=== PATIENT | female | born 1990 | race Caucasian/White ===

== ENCOUNTER → 2021-12-18 11:44 | Outpatient (CLI) | payer OTHER, SELFPAY ==
[2021-12-18 13:19] LABS: HCG,Quantitative 4291 mIU/ml (0-5.42)
== END ==
PROVIDERS: PCP Family Medicine; Visit Provider Nurse Practitioner Obstetrics & Gynecology
DX: N92.6 Irregular menstruation, unspecified (principal)
CPT/HCPCS: 36415; 84702

== ENCOUNTER → 2022-01-14 16:20 | Outpatient (CLI) | payer OTHER, SELFPAY ==
[2022-01-14 17:57] LABS: Basophils # 0.1 K/mm3 (0-0.2); Basophils % 0.6 % (0.1-2.0); Eosinophils # 0.2 K/mm3 (0.0-0.4); Eosinophils % 1.5 % (0.1-12.0); Hematocrit 39.3 % (37.0-47.0); Hemoglobin 12.8 g/dL (12.2-16.2); Lymphocytes # 2.3 K/mm3 (0.7-4.5); Lymphocytes % 22.1 % (10-50); Mean Corpuscular HGB Conc 32.5 g/dL (31.8-35.4); Mean Corpuscular Hemoglobin 31.7 pg (27.0-31.2); Mean Corpuscular Volume 97.7 fl (81-99); Mean Platelet Volume 8.2 fl (7.4-10.4); Monocytes # 0.5 K/mm3 (0.1-1.0); Monocytes % 4.6 % (1.7-9.3); Neutrophils # 7.3 K/mm3 (1.8-7.8); Neutrophils % 71.3 % (37.0-80.0); Platelet Count 413 K/mm3 (142-424); Red Blood Count 4.02 M/mm3 (4.20-5.40); Red Cell Distribution Width 12.6 % (11.5-17.5); White Blood Count 10.3 K/mm3 (4.8-10.8)
[2022-01-16 08:25] LABS: HIV Screen 4th Generation wRfx Non Reactive (Non Reactive); HSV 1 IgG, Type Spec >62.20 index (0.00-0.90); HSV 2 IgG, Type Spec 9.71 index (0.00-0.90); Rubella Antibodies, IgG 5.51 index (Immune >0.99)
[2022-01-16 13:08] LABS: Hepatitis B Surface Antigen Negative (Negative); Hepatitis C Antibody <0.1 s/co ratio (0.0-0.9); Rapid Plasma Reagin Ab Titer Non Reactive (NonRea<1:1)
== END ==
PROVIDERS: PCP Family Medicine; Visit Provider Nurse Practitioner Obstetrics & Gynecology
DX: Z34.90 Encounter for supervision of normal pregnancy, unspecified, unspecified trimester (principal)
CPT/HCPCS: 85025; 86592; 86695; 86703; 86762; 86790; 86850; 87340; 87380; G0432

== ENCOUNTER → 2022-01-17 14:46 | Outpatient (CLI) | payer OTHER, SELFPAY ==
--- NOTE | 2022-01-17 14:46 | US_ITS ---
FINAL REPORT CLINICAL HISTORY: US OB Before 14 wks for Dates/Confirmation FINDINGS: Sonographic images of the pelvis were obtained. A single, living intrauterine is noted. A yolk sac is present and measures 0.7 cm. Backus to rump length measures 2.6 cm which corresponds to 9 weeks 3 days gestation. Heartbeat is identified and measures 167 beats per minute. movement is seen. The right ovary is within normal limits. The left ovary is within normal limits. IMPRESSION: Single, living, intrauterine gestation with 9 weeks 5 days gestational age. Reviewed, Interpreted and Dictated by Alexander Barajas MD Transcribed by Betty Barrett Authenticated by Alexander Barajas MD on 01/17/2022 04:48:32 PM [facility]
== END ==
PROVIDERS: PCP Nurse Practitioner Obstetrics & Gynecology; Visit Provider Nurse Practitioner Obstetrics & Gynecology
DX: O26.841 Uterine size-date discrepancy, first trimester (principal); Z3A.09 9 weeks gestation of pregnancy
CPT/HCPCS: 76801

== ENCOUNTER → 2022-02-11 15:04 | Outpatient (CLI) | payer OTHER, SELFPAY | PROVIDERS: PCP Family Medicine; Visit Provider Nurse Practitioner Obstetrics & Gynecology | DX: Z34.90 Encounter for supervision of normal pregnancy, unspecified, unspecified trimester (principal) | CPT/HCPCS: 36415 ==

== ENCOUNTER → 2022-04-01 13:52 | Outpatient (CLI) | payer OTHER, SELFPAY ==
--- NOTE | 2022-04-01 13:52 | US_ITS ---
FINAL REPORT CLINICAL HISTORY: 20 weeks gestation anatomy scan FINDINGS: There is a single live intrauterine gestation. Presentation is breech. The cervix is closed and measures 3 cm. Placenta is posterior lateral wrap, grade 1. movement is noted. Heart rate is measured at 170 beats per minute. Three-vessel cord with satisfactory umbilical cord insertion. Four-chamber heart is noted. brain and ventricles are unremarkable. Chest and diaphragm are unremarkable. ABDOMEN: Both kidneys are unremarkable. Stomach is unremarkable. SPINE: No anomalies identified. AMNIOTIC FLUID: Appropriate amount. MEASUREMENTS: ULTRASOUND AGE: 19 weeks 5 days. GESTATION AGE: 20 weeks 2 days. ESTIMATED WEIGHT: 319 g GROWTH PERCENTILE: 25% BPD: 4.6 cm corresponding with 19 weeks 6 days. OFD: 5.6 cm corresponding with 19 weeks 4 days. HC: 16 cm corresponding with 19 weeks 0 days. AC: 14.9 cm corresponding with 20 weeks 1 days. FL: 13.2 cm corresponding with 19 weeks 6 days. CEREBELLUM: 1.9 cm corresponding with 19 weeks 4 days. HUMERUS: 3 cm corresponding with 19 weeks 6 days. HC/AC: 1.08 CI: 82% FL/BPD: 69% FL/AC: 21% IMPRESSION: Single living IUP with an ultrasound age of 19 weeks 5 days. Reviewed, Interpreted and Dictated by Gael Covarrubias III, MD Transcribed by Betty Barrett Authenticated and [facility]
== END ==
PROVIDERS: PCP Family Medicine; Visit Provider Nurse Practitioner Obstetrics & Gynecology
DX: Z34.90 Encounter for supervision of normal pregnancy, unspecified, unspecified trimester (principal); Z3A.20 20 weeks gestation of pregnancy
CPT/HCPCS: 76811

== ENCOUNTER → 2022-06-05 08:12 | Outpatient (CLI) | payer OTHER, SELFPAY ==
[2022-06-05 09:03] LABS: Glucose,Fasting 91 mg/dl (74-100)
[2022-06-05 10:30] LABS: Glucose 1 Hour 111 mg/dL (74-100)
== END ==
PROVIDERS: PCP Family Medicine; Visit Provider Nurse Practitioner Obstetrics & Gynecology
DX: Z34.90 Encounter for supervision of normal pregnancy, unspecified, unspecified trimester (principal)
CPT/HCPCS: 36415; 82951

== ENCOUNTER → 2022-07-28 15:15 | Outpatient (CLI) | payer OTHER, SELFPAY | PROVIDERS: Visit Provider Nurse Practitioner Obstetrics & Gynecology | DX: Z34.90 Encounter for supervision of normal pregnancy, unspecified, unspecified trimester (principal) | CPT/HCPCS: 86403 ==

== ENCOUNTER 2022-08-02 23:42 | Outpatient (CLI) | payer OTHER, SELFPAY ==
[2022-08-02 23:50] VITALS: BMI 27.2
[2022-08-03 00:05] VITALS: BP 118/80; PULSE 98; RESP 18; TEMP 36.8; O2SAT 99; BMI 27.2
[2022-08-03 00:15] LABS: Microscopic, Urine URINE MICROSCOPIC (MICROSCOPIC)
[2022-08-03 00:17] LABS: Appearance,Urine CLEAR (Clear); Bilirubin,Urine Negative (Negative); Blood, Urine Negative (Negative); Color,Urine YELLOW (Yellow); Glucose,Urine (UA) Negative (Negative); Ketones,Urine Negative (Negative); Leukocyte Esterase,Urine TRACE (Negative); Nitrate,Urine Negative (Negative); Protein,Urine Negative (Negative); Urobilinogen,Urine 0.2 EU/dl (0.2)
[2022-08-03 00:46] LABS: Amphetamine/Metha Screen,Urine Negative ng/ml (<1000)
[2022-08-03 00:47] LABS: Barbiturates Screen,Urine Negative ng/ml (<200); Benzodiazepines Screen,Urine Negative ng/ml (<200)
[2022-08-03 00:48] LABS: Cannabinoid Screen,Urine Negative ng/ml (<50)
[2022-08-03 00:49] LABS: Cocaine Screen,Urine Negative ng/ml (<300); Methadone Screen,Urine Negative ng/ml (<300)
[2022-08-03 00:50] LABS: Opiate Screen,Urine Negative ng/ml (<300); Phencyclidine Screen,Urine Negative ng/ml (<25)
== END 2022-08-03 02:02 | disposition home or self-care (01) ==
LOC: OBOUT 23:45 → OB 23:46
PROVIDERS: PCP Family Medicine; Referring Provider Nurse Practitioner Obstetrics & Gynecology; Visit Provider Obstetrics & Gynecology
DX: O60.03 Preterm labor without delivery, third trimester (principal); Z3A.38 38 weeks gestation of pregnancy
CPT/HCPCS: 59025; 80305; 81001; 87086; 96365; G0463

== ENCOUNTER 2022-08-11 05:26 | Inpatient (IN) | payer OTHER, SELFPAY ==
[2022-08-11 05:28] VITALS: BP 124/85; PULSE 87; RESP 17; TEMP 37; O2SAT 98; BMI 27.1
[2022-08-11 06:06] LABS: Coronavirus 19, PCR Not Detected (NotDetected); Influenza A, PCR Not Detected (NotDetected); Influenza B, PCR Not Detected (NotDetected)
[2022-08-11 06:13] LABS: Basophils # 0.1 K/mm3 (0-0.2); Basophils % 0.8 % (0.1-2.0); Eosinophils # 0.1 K/mm3 (0.0-0.4); Eosinophils % 1.3 % (0.1-12.0); Hematocrit 35.2 % (37.0-47.0); Hemoglobin 11.9 g/dL (12.2-16.2); Lymphocytes # 2.4 K/mm3 (0.7-4.5); Lymphocytes % 24.8 % (10-50); Mean Corpuscular HGB Conc 33.9 g/dL (31.8-35.4); Mean Corpuscular Hemoglobin 30.8 pg (27.0-31.2); Mean Corpuscular Volume 90.8 fl (81-99); Monocytes # 0.5 K/mm3 (0.1-1.0); Monocytes % 5.1 % (1.7-9.3); Neutrophils # 6.6 K/mm3 (1.8-7.8); Platelet Count 390 K/mm3 (142-424); Red Blood Count 3.87 M/mm3 (4.20-5.40); Red Cell Distribution Width 12.8 % (11.5-17.5); White Blood Count 9.8 K/mm3 (4.8-10.8)
[2022-08-11 07:08] LABS: Microscopic, Urine URINE MICROSCOPIC (MICROSCOPIC)
[2022-08-11 07:11] LABS: Appearance,Urine CLEAR (Clear); Bilirubin,Urine Negative (Negative); Blood, Urine Negative (Negative); Color,Urine YELLOW (Yellow); Glucose,Urine (UA) Negative (Negative); Ketones,Urine Negative (Negative); Leukocyte Esterase,Urine 1+ (Negative); Nitrate,Urine Negative (Negative); PH,Urine 6.5 (5.0-8.5); Protein,Urine Negative (Negative); Urobilinogen,Urine 0.2 EU/dl (0.2)
[2022-08-11 07:21] LABS: Amphetamine/Metha Screen,Urine Negative ng/ml (<1000); Barbiturates Screen,Urine Negative ng/ml (<200)
[2022-08-11 07:22] LABS: Benzodiazepines Screen,Urine Negative ng/ml (<200)
[2022-08-11 07:23] LABS: Cannabinoid Screen,Urine Negative ng/ml (<50); Cocaine Screen,Urine Negative ng/ml (<300)
[2022-08-11 07:24] LABS: Methadone Screen,Urine Negative ng/ml (<300)
[2022-08-11 07:25] LABS: Bacteria,Urine Trace /lpf; Phencyclidine Screen,Urine Negative ng/ml (<25)
[2022-08-11 07:26] LABS: Opiate Screen,Urine Negative ng/ml (<300)
--- NOTE | 2022-08-11 07:40 | P.CONPHA_ITS ---
Pharmacy Intervention Comments: MEDICATION RECONCILIATION COMPLETED ON PATIENT USING EXTERNAL FILL HISTORY FROM PHARMACY AND LIST FROM SENIOR ABAP DEVELOPER OFFICE. -SONNY SALAZARD
--- NOTE | 2022-08-11 07:40 | HMH.PHAINT1 ---
Pharmacy Intervention Comments: MEDICATION RECONCILIATION COMPLETED ON PATIENT USING EXTERNAL FILL HISTORY FROM PHARMACY AND LIST FROM PALLIATIVE NURSE OFFICE. -SONNY SALAZARD
--- NOTE | 2022-08-11 09:29 | EXP.LABOR.NO ---
Labor Note Subjective: Date: 08/11/22 Time: 08:00 regular contraction Objective: NST:: Reactive Contractions:: every 2-3 minutes Cervical Dilation:: 2 Effacement:: 75% Station: -2 Membranes: artificially ruptured Comment:: I ruptured membranes and there was clear fluid. Fetus: Monitoring?: Yes monitoring type:: External Assessment: Labor progressing?: Yes Cephalopelvic disproportion?: No All Active Problems (Updated 08/11/22 @ 06:56 by Loretta Romo RN) (Acute) Plan: Anesthesia for epidural?: Yes Continue to labor down?: Yes Plan for ?: No Continue to monitor?: Yes Start pushing?: No
--- NOTE | 2022-08-11 09:31 | EXP.HP ---
History of Present Illness *Admission Date: 08/11/22 *Reason for visit:: Term *History of present illness: She is a 32-year-old 4 para 1 who is 39 weeks gestational age. [place] town and as result of that we have elected to induce her labor at term. [facility] Medical History No significant past medical history No significant past medical history Family History Family history of kidney stone Social History Smoking Status: Former smoker alcohol intake: never substance use type: denies use current occupational status: employed Travel in the last 8 weeks: None Review of Systems Review of Systems Review of systems:: pertinent systems reviewed and negative unless documented below Meds Home Medications and Allergies Home Medications Medication Instructions Recorded Confirmed Type prenat.vits,henrry,[id number]-vxmkn 1 tab PO DAILY Supplement 03/11/22 08/11/22 History famotidine 20 mg tablet (Pepcid) 20 mg PO DAILY GERD 08/11/22 08/11/22 History ferrous sulfate 325 mg (65 mg 325 mg PO DAILY Supplement 08/11/22 08/11/22 History iron) tablet valacyclovir 500 mg tablet 500 mg PO DAILY Infection 08/11/22 08/11/22 History New Prescriptions to Start Prescriptions: Allergies Allergy/AdvReac Type Severity Reaction Status Date / Time No Known Allergies Allergy Verified 08/04/22 14:11 Exam Data for Last 24 hours Vital signs and Labs for Last 24 Hours: Temp Pulse Resp BP Pulse Ox 98.6 F 87 17 124/85 98 08/11/22 05:28 08/11/22 05:28 08/11/22 05:28 08/11/22 05:28 08/11/22 05:28 Laboratory Results - last 24 hr 08/11/22 05:55: WBC 9.8, RBC 3.87 L, Hgb 11.9 L, Hct 35.2 L, MCV 90.8, MCH 30.8, MCHC 33.9, RDW 12.8, Plt Count 390, MPV 8.0, Neut % (Auto) 68.0, Lymph % (Auto) 24.8, Dent % (Auto) 5.1, Eos % (Auto) 1.3, Baso % (Auto) 0.8, Neut # (Auto) 6.6, Lymph # (Auto) 2.4, Dent # (Auto) 0.5, Eos # (Auto) 0.1, Baso # (Auto) 0.1 08/11/22 05:55: Blood Type O Positive, Antibody Screen Negative 08/11/22 05:55: SARS-CoV-2 (PCR) Not detected, Influenza A Untype (PCR) Not detected, Influenza Type B (PCR) Not detected 08/11/22 06:35: Urine Color Yellow, Urine Appearance Clear, Urine pH 6.5, Ur Specific [place] 1.010, Urine Protein Negative, Urine Glucose (UA) Negative, Urine Ketones Negative, Urine Blood Negative, Urine Nitrate Negative, Urine Bilirubin Negative, Urine Urobilinogen 0.2, Ur Leukocyte Esterase 1+ A, Urine RBC None, Urine WBC 10-20, Ur Squamous Epith Cells 5-10, Urine Bacteria Trace 08/11/22 06:35: Urine Opiates Screen Negative, Urine Methadone Screen Negative, Ur Barbituates Screen Negative, Ur Phencyclidine Scrn Negative, Ur Amphetamines Screen Negative, U Benzodiazepines Scrn Negative, Urine Cocaine Screen Negative, U Marijuana (THC) Screen Negative I & O for Last 24 hours: Intake & Output 08/08/22 08/09/22 08/10/22 08/11/22 11:59 11:59 11:59 11:59 Weight 148 lb Constitutional Constitutional: no acute distress *Routine HEENT Exam Head: Present normocephalic Eye: Present EOMI and PERRL ENT: Present mucous membranes moist *Routine Neck Exam Neck: Present supple and full ROM *Routine Respiratory Exam Respiratory: Absent accessory muscle use (good air entry bilaterally), wheezes or crackles *Routine Cardiovascular Exam Cardiovascular: Present RRR; Absent murmur *Routine Abdominal Exam Abdominal: Present soft and normoactive bowel sounds; Absent tenderness, rebound, guarding or mass *Routine Rectal Exam Rectal:: deferred *Routine Genitalia Exam Genitalia:: normal female Comment:: Her cervix is 2 cm dilated 75% and -2. *Routine Extremities Exam Extremities: Present full ROM; Absent cyanosis, edema or calf tenderness *Routine Skin Exam Skin: Present intact (good color) *Routine Neurological Exam
--- NOTE | 2022-08-11 10:59 | EXP.OP.NOTE ---
Date of procedure: 08/11/22 Pre-op Diagnosis:: Prolapsed hand, term Post-op Diagnosis:: Prolapsed hand, term Procedure performed:: Primary lower segment transverse section Surgeon:: Maxwell Lin MD Wind Energy Mechanic(s):: Dr. Escalante MOHS SURGEON:: Thelma Molina and Other (Brandon Mckenzie) Anesthesia: spinal Estimated blood loss (mL): 600 Clinical Note:: She is a 32-year-old 4 para 1 aborta 1 who was 39 weeks gestational age. She came in for induction of labor at term. She was started on IV oxytocin had her membranes ruptured. She progressed to 6 cm dilated and on examination it was found that the hand had completely prolapsed through the cervix. As result of that she was offered primary lower segment transverse section. I discussed the risks of surgery that includes bleeding, infection, injuries to the bowel and bladder. I discussed the rare risk of DVT. All questions were answered and consents were signed prior to surgery. We discussed the risks of surgery with her . We also discussed the use of a T AP block. Operative findings:: She delivered a liveborn female child at 10:29 AM on the morning of August 11, 2022. The baby had Apgars of 9 at 1 minute and 9 at 5 minutes. There was a loose nuchal cord. Operative note:: She was taken to the operating room where spinal anesthesia was found be adequate. She was prepped and draped in normal sterile fashion in the supine position with a leftward tilt. A Correa catheter was in the bladder. A Pfannenstiel skin incision was made with knife then carried through to the underlying layer of fascia with cautery. The fascia was opened in the midline with cautery and extended laterally using Botello scissors. Lillian clamps were applied to the superior aspect of the fascial incision which was tented up and the underlying rectus muscles dissected off using cautery. The Lillian clamps were then applied to the inferior aspect of the fascial incision which in a similar fashion was tented up and the underlying rectus muscles dissected off using cautery. The rectus muscles were then in the midline, the peritoneum identified, and entered sharply bluntly.. This incision was then extended superiorly and inferiorly with cautery. We had good visualization of the bladder inferiorly. We then inserted an Javier retractor. Transverse incision was made through the uterine muscle above the bladder flap to the amnion. This incision was then extended superiorly and inferiorly using fingers traction. The amnion was entered sharply with knife. There was clear amniotic fluid. The 's head was then delivered atraumatically. A loose nuchal cord was then reduced. This was followed by the anterior shoulder and the rest of the 's body atraumatically. The oropharynx and nasopharynx were bulb suctioned. The infant was vigorous so we allowed the cord to continue to pulsate for approximately 1 minute. The was then handed off to Dr. Ledezma who assigned Apgars of 9 at 1 minute and 9 at 5 minutes. We then obtained cord blood. Using gentle traction on the cord and fundal massage I was able to easily deliver the placenta intact. It had a normal three-vessel cord. The uterus was then cleared of clots and debris . The uterine incision was then closed using running 0 Vicryl suture in a locked fashion. A second layer of the same suture was used to imbricate the first layer. The bladder peritoneum was then closed using running 2-0 Vicryl suture in a locked fashion. Prior to closure of the bladder peritoneum I inserted a large piece of Gelfoam. The gutters and cul-de-sac were then cleared of clots and debris . Once again hemostasis was assured. The fascia was closed using running #1 Vicryl suture. The subcutaneous tissues were then irrigated with warm water followed by closure Hannah's fascia using running 2-0 Monocryl suture. The skin was closed with running subcuticular 2-0 Monocryl strata fix
[2022-08-11 11:15] VITALS: BP 145/72; PULSE 82; RESP 14; TEMP 36.6; O2SAT 100
--- NOTE | 2022-08-11 11:18 | P.PN_ITS ---
[facility] Medical History No significant past medical history No significant past medical history Family History Family history of kidney stone Social History Smoking Status: Former smoker alcohol intake: never substance use type: denies use current occupational status: employed Travel in the last 8 weeks: None [facility] Anesthesia Checklist Patient Identification Patient Identification: Arm Band and Verbal (Name & ) Structural Data Admitted From: Inpatient Planned Operative Procedure/s: c section Consent for Planned Operative Procedure(s) Verified: Yes Verified Documents: Surgical Consent NPO Status Verified Time NPO: 00:00 Airway Assessment C-Spine Mobility Assessed: Yes TMJ Mobility Assessed: Yes Dentition: Good Dentition Neurological Assessment Level of Consciousness: Awake, Alert and Appropriate Anesthesia Plan Anesthesia Risk discussed: Yes ASA Class: II Anesthesia Type: Spinal
--- NOTE | 2022-08-11 11:19 | EXP.ANES.I ---
[facility] Anesthesia Record Part I Anesthesia Record I Intake, IV Amount: 500 Estimated blood loss (mL): 600 Urine output (mL): 0 Blood Pressure: 125/72 SaO2: 100 Pulse Rate: 82 Respiratory Rate: 14 Temperature: 97.9 F Patient is:: Awake Stable to PACU at:: 11:15
[2022-08-11 11:20] VITALS: BP 125/72; PULSE 82; RESP 14; TEMP 36.6; O2SAT 100
[2022-08-11 11:25] VITALS: BP 122/81; PULSE 83; RESP 14; O2SAT 100
[2022-08-11 11:35] VITALS: BP 126/87; PULSE 81; RESP 14; O2SAT 100
[2022-08-11 11:45] VITALS: BP 129/84; PULSE 80; RESP 14; TEMP 36.7; O2SAT 100
--- NOTE | 2022-08-11 11:49 | SUR.PHASEI ---
1144- detailed report called to queenie parkinson on OB floor 1146- pt left in stable condition with queenie parkinson in pt room. Pt vitals stable, all dressings CDI.
--- NOTE | 2022-08-11 12:24 | SUR.OPER ---
LATE ENTRY 1029 Viable infant girl born 1055 timeout performed for Tap block 1056 Tap blocked started 1108 Tap block finished
[2022-08-11 15:14] LABS: Microscopic,Cath URINE MICROSCOPIC (MICROSCOPIC)
[2022-08-11 15:20] LABS: Appearance,Urine/Cath CLEAR (Clear); Bilirubin,Cath Negative (Negative); Blood, Urine/Cath TRACE-I (Negative); Color,Urine/Cath YELLOW (Yellow); Glucose,Urine/Cath (UA) Negative (Negative); Ketones,Urine/Cath Negative (Negative); Leukocyte Esterase,Cath Negative (Negative); Nitrate,Cath Negative (Negative); Protein,Urine/Cath Negative (Negative); Specific Gravity, Urine/Cath 1.015 (1.005-1.030); Urobilinogen,Cath 0.2 EU/dl (0.2)
[2022-08-11 15:43] LABS: RBC,Urine/Cath Occasional # /hpf (0-3); WBC,Urine/Cath Occasional #/hpf (0-3)
[2022-08-11 15:44] LABS: Bacteria,Urine/Cath TRACE /lpf
[2022-08-12 07:15] LABS: Hematocrit 29.6 % (37.0-47.0); Hemoglobin 9.8 g/dL (12.2-16.2)
[2022-08-12 08:22] VITALS: BP 124/80; PULSE 89; RESP 18; TEMP 36.8; O2SAT 99
--- NOTE | 2022-08-12 08:26 | P.PN_ITS ---
Subjective *Date: 08/12/22 *Time: 08:26 Interval history: She is doing very well. She is 1 day post section for a hand presentation. Her pain is now well controlled. She did not seem to have much relief with the T AP block. She is eating and drinking and ambulating. She is breast-feeding. Medical Exam Vital signs and Labs for Last 24 Hours: Temp Pulse Resp BP Pulse Ox 98.0 F 80 14 129/84 100 08/11/22 11:45 08/11/22 11:45 08/11/22 11:45 08/11/22 11:45 08/11/22 11:45 Laboratory Results - last 24 hr 08/11/22 10:16: Urine Color Yellow, Urine Appearance Clear, Urine pH 8.0, Ur Specific [place] 1.015, Urine Protein Negative, Urine Glucose (UA) Negative, Urine Ketones Negative, Urine Blood Trace-i, Urine Nitrate Negative, Urine Bilirubin Negative, Urine Urobilinogen 0.2, Ur Leukocyte Esterase Negative, Urine RBC Occasional, Urine WBC Occasional, Ur Squamous Epith Cells None, Urine Bacteria Trace 08/12/22 06:40: Hgb 9.8 L, Hct 29.6 L I & O for Labs for Last 24 Hours: Intake & Output 08/09/22 08/10/22 08/11/22 08/12/22 11:59 11:59 11:59 11:59 Intake Total 500 / 500 Balance 500 / 500 Weight 148 lb Microbiology Reports for the Last 24 Hours: Microbiology 08/11/22 06:35 Urine,Clean Catch Urine Culture - Preliminary NO GROWTH AFTER 24 HOURS Head: Present atraumatic and normocephalic ENT: Present normal exam Neck: Present normal inspection Respiratory: Present normal respiratory effort GI: Present soft and tenderness; Absent guarding or rigidity Comments:: Her incision is clean and dry Neuro: Present alert, awake and oriented x 3 Assessment and Plan *Assessment and plan (1) delivery delivered: Status: Acute Category: Medical Code(s): O82 - Encounter for delivery without indication (2) Hand presentation: Status: Acute Category: Medical Code(s): O32.2XX0 - Maternal care for transverse and oblique lie, not applicable or unspecified Plan She is doing well. Her pain is improved. We will observe her for today and see how she does. If she is doing well she may be discharged tomorrow.
[2022-08-12 10:35] VITALS: BP 129/84; PULSE 80; TEMP 36.6
--- NOTE | 2022-08-12 10:35 | P.PNANES_ITS ---
[facility] Anesthesia Record Part II Anesthesia Record Part II Discharge Time: 11:45 Destination: Surgical Day Care (OP Surgery) PACU nurse assessment reviewed?: Yes Patient Condition:: Good Anesthesia Complications:: None Swallowing reflex intact?: Yes Cyanosis?: No Blood Pressure: 129/84 Pulse Rate: 80 Temperature: 98 F Mental Status: Alert & Oriented Pain level:: 0 Nausea and/or vomitting:: None Intake, IV Amount: 0
[2022-08-12 16:22] VITALS: BP 116/65; PULSE 82; RESP 18; TEMP 37; O2SAT 99
[2022-08-12 20:30] VITALS: RESP 18
[2022-08-13 01:26] VITALS: RESP 18
[2022-08-13 05:39] VITALS: RESP 18
--- NOTE | 2022-08-13 09:34 | EXP.DC.SUM ---
General Admission date:: 08/11/22 Discharge date: 08/13/22 HPI HPI HPI: She is a 32-year-old 4 para 1 who is 39 weeks gestational age. [place] town and as result of that we have elected to induce her labor at term. Hospital Course Hospital Course Hospital Course: She was started on oxytocin and progressed to 6 cm. On examination was found that she had a hand presentation with the baby's hand through the cervix. As result of that she was offered section. She delivered a liveborn female child at 10:29 AM on the morning of August 11, 2022. The baby weighed 5 pounds 14 ounces and was 17-1/2 inches long. She had Apgars of 9 at 1 minute and 9 at 5 minutes. She has done well and has remained afebrile for her hospitalization. She is eating and drinking and ambulating. She is breast-feeding. Her lochia is normal. She has O Rh+ blood, she is rubella immune and was group B streptococcus negative. She is discharged home to follow-up with me in approximately 2 weeks time. She will continue with her vitamins and iron. She was given a prescription for Percocet 5/325 number 20 tablets. She was given instructions with respect to limiting her activity, driving and sexual activity. She was given instructions with respect to wound care. Her condition on discharge is stable and improved. Exam Data for Last 24 hours Vital signs and Labs for Last 24 Hours: Temp Pulse Resp BP Pulse Ox 98.6 F 82 18 116/65 99 08/12/22 16:22 08/12/22 16:22 08/13/22 05:39 08/12/22 16:22 08/12/22 16:22 I & O for Last 24 hours: Intake & Output 08/10/22 08/11/22 08/12/22 08/13/22 11:59 11:59 11:59 11:59 Intake Total 500 / 500 0 / 0 Balance 500 / 500 0 / 0 Weight 148 lb Microbiology Reports for the Last 24 Hours: Microbiology 08/11/22 06:35 Urine,Clean Catch Urine Culture - Final NO GROWTH AFTER 48 HOURS DS: Diagnosis Discharge Diagnosis (1) delivery delivered: Status: Acute (2) Hand presentation: Status: Acute Meds Home Medications and Allergies Home Medications Medication Instructions Recorded Confirmed Type philomena.vits,henrry,afx-rsof-akwkk 1 tab PO DAILY Supplement 03/11/22 08/11/22 History famotidine 20 mg tablet (Pepcid) 20 mg PO DAILY GERD 08/11/22 08/11/22 History ferrous sulfate 325 mg (65 mg 325 mg PO DAILY Supplement 08/11/22 08/11/22 History iron) tablet valacyclovir 500 mg tablet 500 mg PO DAILY Infection 08/11/22 08/11/22 History oxycodone-acetaminophen 5 mg-325 1 - 2 tab PO Q6 PRN severe pain. 08/13/22 Rx mg tablet (Percocet) #20 tabs New Prescriptions to Start Prescriptions: oxycodone-acetaminophen [Percocet] Maxwell Lin Allergies Allergy/AdvReac Type Severity Reaction Status Date / Time No Known Allergies Allergy Verified 08/04/22 14:11 Discharge Plan Disposition Patient Disposition: Home, Self-Care Discharge Order Discharge Orders: Discharge Order (Routine); Ordered 08/13/22 Ordered By: Maxwell Lin Follow up Plan Follow up with: Maxwell Lin MD [Staff Physician] - 08/25/22 9:30 am Prescriptions/Medication Reconciliation: New oxycodone-acetaminophen [Percocet] 5-325 mg Tablet 1 - 2 tab PO Q6 PRN (Reason: severe pain.) Qty: 20 0RF Continued prenat.vits,henrry,xlf-[id number]-[id number] Tablet 1 tab PO DAILY famotidine [Pepcid] 20 mg tablet 20 mg PO DAILY ferrous sulfate 325 mg (65 mg iron) tablet 325 mg PO DAILY valacyclovir 500 mg tablet 500 mg PO DAILY Label Comments: TAKE 1 TABLET BY MOUTH ONCE DAILY Problem Reconciliation Problems Reviewed?: Yes Patient Discharge Instructions ACTIVITY: No heavy lifting DIET: continue same diet Providers Primary Care Provider: Ninfa Ventura Admit Provider: Maxwell Lin Attending Provider: Maxwell Lin
== END 2022-08-13 11:00 | disposition home or self-care (01) | DRG 788 ==
PROVIDERS: Admitting Provider Nurse Practitioner Obstetrics & Gynecology; PCP Family Medicine; Visit Provider Nurse Practitioner Obstetrics & Gynecology
PROC: 10D00Z1 Extraction of Products of Conception, Low, Open Approach (ICD-10-PCS; CPT 59514; principal; 2022-08-11 10:00)
DX: Z3A.39 39 weeks gestation of pregnancy; Z37.0 Single live birth; O69.81X0 Labor and delivery complicated by cord around neck, without compression, not applicable or unspecified; O32.2XX0 Maternal care for transverse and oblique lie, not applicable or unspecified
CPT/HCPCS: 59514; 36415; 59025; 80305; 81001; 85014; 85018; 85025; 86850; 87086; 90715; 94761; C9803; G0283; J2405; J2505; U0003; U0005

== ENCOUNTER 2023-12-25 13:21 | Outpatient (CLI) | payer OTHER, SELFPAY ==
[2023-12-25 14:59] LABS: HCG,Quantitative 24 mIU/ml (0-5.42)
[2023-12-26 05:53] LABS: Progesterone 1.3 ng/mL (.)
== END 2023-12-25 23:59 ==
LOC: LAB 13:23
PROVIDERS: PCP Family Medicine; Visit Provider Nurse Practitioner Obstetrics & Gynecology
DX: Z32.01 Encounter for pregnancy test, result positive (principal)
CPT/HCPCS: 36415; 84144; 84702

== ENCOUNTER 2024-01-28 12:51 | Outpatient (CLI) | payer OTHER, SELFPAY ==
[2024-01-28 14:32] LABS: HCG,Quantitative 60 mIU/ml (0-5.42)
== END 2024-01-28 23:59 ==
LOC: LAB 12:52
PROVIDERS: PCP Family Medicine; Visit Provider Nurse Practitioner Obstetrics & Gynecology
DX: Z32.00 Encounter for pregnancy test, result unknown (principal)
CPT/HCPCS: 36415; 84702

== ENCOUNTER 2024-02-02 09:45 | Outpatient (CLI) | payer OTHER, SELFPAY ==
[2024-02-02 11:47] LABS: HCG,Quantitative 4 mIU/ml (0-5.42)
[2024-02-03 08:30] LABS: Progesterone 0.6 ng/mL (.)
== END 2024-02-02 23:59 | disposition home or self-care (01) ==
LOC: LAB 09:45
PROVIDERS: PCP Family Medicine; Visit Provider Nurse Practitioner Obstetrics & Gynecology
DX: O26.891 Other specified pregnancy related conditions, first trimester (principal); O03.9 Complete or unspecified spontaneous abortion without complication
CPT/HCPCS: 36415; 84144; 84702

== ENCOUNTER 2024-03-17 08:58 | Outpatient (CLI) | payer OTHER, SELFPAY ==
[2024-03-17 11:23] LABS: HCG,Quantitative 35170 mIU/ml (0-5.42)
== END 2024-03-17 23:59 | disposition home or self-care (01) ==
LOC: LAB 08:59
PROVIDERS: PCP Family Medicine; Visit Provider Nurse Practitioner Obstetrics & Gynecology
DX: O26.891 Other specified pregnancy related conditions, first trimester (principal); Z3A.14 14 weeks gestation of pregnancy
CPT/HCPCS: 36415; 84144; 84702

== ENCOUNTER 2024-03-18 10:09 | Outpatient (CLI) | payer OTHER, SELFPAY ==
--- NOTE | 2024-03-18 10:12 | US_ITS ---
PROCEDURE: US OB <= 14 WEEKS FETUS CLINICAL INDICATION: Check Viability/dates of COMPARISON: No exams were available for comparison FINDINGS: Transvaginal sonographic images of the pelvis were obtained. From her last menstrual period she is 6weeks 6days. An intrauterine gestational sac is present with a pole with a crown-rump length of 0.31cm This correlates to a gestational age of 6weeks 0 days. heart tones are present with an FHR of 116bpm. Yolk sac is noted. The yolk sac measures 4.2mm. The right ovary is seen and appears normal. There is a corpus luteum in the right ovary measuring 2.6 cm. The left ovary is seen and appears normal. There is no fluid in the cul-de-sac. IMPRESSION: 1. Viable intrauterine within the uterine cavity. 2. Fetus currently measures 6 weeks 0 days. We will revise her due date to reflect this and the new due date will be 11/11/2024. 3. Both ovaries are seen and appear normal. There appears to be a corpus luteum on the right ovary. 4. No fluid in the cul-de-sac. Dictated by: Maxwell Lin MD 03/19/2024 08:31 Maxwell Lin MD in OV 03/19/2024 08:31
== END 2024-03-18 23:59 | disposition home or self-care (01) ==
LOC: RAD 10:10
PROVIDERS: PCP Family Medicine; Visit Provider Nurse Practitioner Obstetrics & Gynecology
DX: O36.80X0 Pregnancy with inconclusive fetal viability, not applicable or unspecified (principal)
CPT/HCPCS: 76801

== ENCOUNTER 2024-04-27 16:29 | Outpatient (CLI) | payer OTHER, SELFPAY | END 2024-04-27 23:59 | disposition home or self-care (01) | LOC: LAB.DROPOF 16:29 | PROVIDERS: PCP Nurse Practitioner Obstetrics & Gynecology; Visit Provider Nurse Practitioner Obstetrics & Gynecology | DX: Z34.90 Encounter for supervision of normal pregnancy, unspecified, unspecified trimester (principal) | CPT/HCPCS: 87086 ==

== ENCOUNTER 2024-06-24 09:00 | Outpatient (CLI) | payer OTHER, SELFPAY ==
--- NOTE | 2024-06-24 09:00 | US_ITS ---
PROCEDURE: US OB /MATERNAL DETAIL CLINICAL INDICATION: 20 wk+ Anatomy Scan COMPARISON: No exams were available for comparison FINDINGS: Transabdominal sonographic images of the pelvis were obtained. From her established due date she is 20 weeks 0 days. Single viable intrauterine gestation. Breech position. Placenta: Posteriorplacenta grade 1. There is an average amount of fluid. The cervix appears satisfactory. Closed and measuring 3.3 cm in length. Complete survey performed and was unremarkable on the submitted images as in PACS. No discrete anomalies identified on survey imaging by technologist. Active fetus. Three-vessel cord with satisfactory umbilical cord insertion. 4- chamber heart noted. Situs, aortic arch, LVOT, RVOT, three-vessel view appear normal. Survey of brain & ventricles Unremarkable. Cerebellum, thalamus, choroid plexus, cisterna magna appear normal. Face and neck survey unremarkable. Profile, nasion, lips and nose appeared normal. Diaphragm and chest views unremarkable. Abdomen: Both kidneys noted and unremarkable. Stomach and bladder noted and satisfactory. Spine: Survey of the spine satisfactory with no anomalies identified nor imaged. Cervical, thoracic, lower spine appear normal. Both arms and legs noted. Amniotic Fluid: Adequate. MVP 3.45 cm. Measurements: Average ultrasound age 20weeks 1day. Estimated due date by ultrasound age 0111/10/2024. Estimated weight 337g BPD = 20weeks 1day HC = 19weeks 5days AC = 20weeks 0 days FL = 20weeks 4days Growth Percentile= 56 Heart Rate = 146bpm Cerebellum = 19weeks Humerus = 21weeks HC/AC is 1.16 FL/BPD is 0.72 FL/AC is 0.23 IMPRESSION: 1. Viable fetus in the breech presentation with posterior placenta grade 1. 2. The fluid is within normal limits. MVP 3.45 cm. 3. Anatomical scan appears normal. 4. biometry is consistent with the dates. Dictated by: Maxwell Lin MD 06/24/2024 16:50 Maxwell Lin MD in OV 06/24/2024 16:50
== END 2024-06-24 23:59 | disposition home or self-care (01) ==
LOC: RAD 09:00
PROVIDERS: PCP Nurse Practitioner Obstetrics & Gynecology; Visit Provider Nurse Practitioner Obstetrics & Gynecology
DX: Z36.3 Encounter for antenatal screening for malformations (principal); O82 Encounter for cesarean delivery without indication; Z3A.20 20 weeks gestation of pregnancy
CPT/HCPCS: 76811

== ENCOUNTER 2024-08-16 08:20 | Outpatient (CLI) | payer OTHER, SELFPAY ==
[2024-08-16 08:41] LABS: Basophils # 0.1 K/mm3 (0-0.2); Basophils % 0.6 % (0.1-2.0); Eosinophils # 0.2 K/mm3 (0.0-0.4); Eosinophils % 1.7 % (0.1-12.0); Hematocrit 34.3 % (37.0-47.0); Hemoglobin 11.9 g/dL (12.2-16.2); Lymphocytes # 2.4 K/mm3 (0.7-4.5); Lymphocytes % 23.6 % (10-50); Mean Corpuscular HGB Conc 34.6 g/dL (31.8-35.4); Mean Corpuscular Hemoglobin 31.8 pg (27.0-31.2); Mean Platelet Volume 7.3 fl (7.4-10.4); Monocytes # 0.5 K/mm3 (0.1-1.0); Monocytes % 4.5 % (1.7-9.3); Neutrophils # 7.2 K/mm3 (1.8-7.8); Neutrophils % 69.6 % (37.0-80.0); Platelet Count 378 K/mm3 (142-424); Red Blood Count 3.73 M/mm3 (4.20-5.40); Red Cell Distribution Width 13.3 % (11.5-17.5); White Blood Count 10.4 K/mm3 (4.8-10.8)
[2024-08-16 09:04] LABS: Glucose,Fasting 80 mg/dl (74-100)
[2024-08-16 10:04] LABS: Glucose 1 Hour 118 mg/dL (74-100)
[2024-08-17 13:41] LABS: Rapid Plasma Reagin Ab Titer Non Reactive titer (NonRea<1:1)
== END 2024-08-16 23:59 | disposition home or self-care (01) ==
LOC: LAB 08:21
PROVIDERS: PCP Family Medicine; Visit Provider Nurse Practitioner Obstetrics & Gynecology
DX: Z34.90 Encounter for supervision of normal pregnancy, unspecified, unspecified trimester (principal)
CPT/HCPCS: 36415; 82951; 85025; 86593

== ENCOUNTER 2024-09-05 09:52 | Outpatient (CLI) | payer OTHER, SELFPAY ==
--- NOTE | 2024-09-05 10:06 | US_ITS ---
PROCEDURE: US OB FOLLOW UP CLINICAL INDICATION: Growth COMPARISON: US US OB <= 14 WEEKS FETUS from 03/18/2024 US US OB /MATERNAL DETAIL from 06/24/2024 FINDINGS: Transabdominal sonographic images of the pelvis were obtained. The following parameters are obtained: From her established due date she is 30weeks 3days Viable fetus in the cephalic presentation with a posterior placenta grade 2. The cervix measures 3.1 cm heart rate: 134bpm bpm. Estimated weight 1618 grams, 3 lb 9 oz BPD: 31weeks 2days, 65 percentile HC: 31weeks 3days, 42 percentile AC: 31weeks 0 days, 61 percentile FL: 30weeks 0 days, 22 percentile HC/AC: 1.07 FL/BPD: 0.73 FL/AC: 0.21 Growth percentile: 46 Amniotic fluid index: 12.33cm, MVP 4.26 cm No obvious anomalies evident. profile seen, stomach, bladder, kidneys, nose, lips, three-vessel cord, four chamber heart appear normal. IMPRESSION: 1. Viable fetus in the cephalic presentation with posterior placenta grade 2. 2. The fluid is within normal limits with an amniotic fluid index 12.33 cm, MVP 4.26 cm. 3. There has been good growth with the fetus currently 46th percentile. 4. Limited anatomical scan appears normal. Dictated by: Maxwell Lin MD 09/05/2024 14:03 Maxwell Lin MD in OV 09/05/2024 14:04
--- NOTE | 2024-09-05 10:06 | US_ITS ---
PROCEDURE: US OB TRANSVAGINAL CLINICAL INDICATION: Growth COMPARISON: No exams were available for comparison FINDINGS: Transvaginal sonographic images of the cervix were obtained. The following parameters are obtained: From her established due date she is 30weeks 3days Viable fetus in the cephalic presentation. The cervix measures 1.0 cm There is funneling of the cervix at the internal os. It measures 8 mm in length and 5.0 mm in with. IMPRESSION: 1. The cervix is foreshortened at 30 weeks and 3 days. 2. It measures 1.0 cm in length. There is funneling that measures 5.0 mm in width and 8 mm in length. 3. Fetus is in the cephalic presentation. Dictated by: Maxwell Lin MD 09/05/2024 13:57 Maxwell Lin MD in OV 09/05/2024 13:57
[2024-09-05 10:27] LABS: Basophils # 0.1 K/mm3 (0-0.2); Basophils % 0.6 % (0.1-2.0); Eosinophils # 0.2 K/mm3 (0.0-0.4); Eosinophils % 1.4 % (0.1-12.0); Hematocrit 33.6 % (37.0-47.0); Hemoglobin 11.4 g/dL (12.2-16.2); Lymphocytes # 2.6 K/mm3 (0.7-4.5); Lymphocytes % 21.2 % (10-50); Mean Corpuscular HGB Conc 33.8 g/dL (31.8-35.4); Mean Corpuscular Hemoglobin 31.1 pg (27.0-31.2); Mean Corpuscular Volume 91.9 fl (81-99); Mean Platelet Volume 7.5 fl (7.4-10.4); Monocytes # 0.4 K/mm3 (0.1-1.0); Monocytes % 3.4 % (1.7-9.3); Neutrophils # 9.2 K/mm3 (1.8-7.8); Neutrophils % 73.5 % (37.0-80.0); Platelet Count 339 K/mm3 (142-424); Red Blood Count 3.66 M/mm3 (4.20-5.40); Red Cell Distribution Width 13.3 % (11.5-17.5); White Blood Count 12.5 K/mm3 (4.8-10.8)
[2024-09-05 11:20] LABS: HIV (1&2) Antibody Rapid NONREACTIVE (NONREACTIVE)
[2024-09-05 12:28] VITALS: BMI 23.9
[2024-09-05 12:44] VITALS: BP 134/79; PULSE 98; RESP 16; TEMP 36.7; O2SAT 100; BMI 23.9
[2024-09-05] MEDS: LACTATED RINGERS 1000ML 1,000 ML 999 ML IV (13:45)
[2024-09-05] MEDS: NIFEdipine 10MG CAPSULE 10 MG PO (13:58)
[2024-09-05 14:42] LABS: Microscopic, Urine URINE MICROSCOPIC (MICROSCOPIC)
[2024-09-05 14:54] LABS: Appearance,Urine CLEAR (Clear); Bilirubin,Urine Negative (Negative); Blood, Urine Negative (Negative); Color,Urine YELLOW (Yellow); Glucose,Urine (UA) Negative (Negative); Ketones,Urine TRACE (Negative); Leukocyte Esterase,Urine Negative (Negative); Nitrate,Urine Negative (Negative); Protein,Urine Negative (Negative); Specific Gravity, Urine 1.015 (1.005-1.030); Urobilinogen,Urine 0.2 EU/dl (0.2)
[2024-09-05 15:07] LABS: Amphetamine/Metha Screen,Urine Negative ng/ml (<1000); Barbiturates Screen,Urine Negative ng/ml (<200); Benzodiazepines Screen,Urine Negative ng/ml (<200); Cannabinoid Screen,Urine Negative ng/ml (<50); Cocaine Screen,Urine Negative ng/ml (<300); Methadone Screen,Urine Negative ng/ml (<300); Opiate Screen,Urine Negative ng/ml (<300); Phencyclidine Screen,Urine Negative ng/ml (<25)
[2024-09-05] MEDS: BETAMETHASONE ACET/PHOS 6MG/ML 5ML MDV 12 MG IM (15:18)
[2024-09-05 15:20] LABS: Squamous Epithelial Cell,Urine Occasional #/hpf (0-5)
[2024-09-06 08:51] LABS: HCV Ab Non Reactive (Non Reactive); Hepatitis B Surface Antigen Negative (Negative)
[2024-09-06 11:17] LABS: Rubella Antibodies, IgG 4.16 index (Immune >0.99)
[2024-09-06 13:34] LABS: Rapid Plasma Reagin Ab Titer Non Reactive titer (NonRea<1:1)
== END 2024-09-05 15:38 | disposition home or self-care (01) ==
LOC: RAD 09:53 → OBOUT 12:23 → OB 12:24
PROVIDERS: PCP Family Medicine; Visit Provider Nurse Practitioner Obstetrics & Gynecology
DX: O34.43 Maternal care for other abnormalities of cervix, third trimester (principal); Z3A.30 30 weeks gestation of pregnancy
CPT/HCPCS: 36415; 76816; 76817; 80307; 81001; 85025; 86593; 86762; 86803; 86850; 87340; 87389; G0463; J0702; J7120

== ENCOUNTER 2024-09-06 13:13 | Outpatient (CLI) | payer OTHER, SELFPAY ==
[2024-09-06 13:56] VITALS: BMI 23.9
[2024-09-06] MEDS: BETAMETHASONE ACET/PHOS 6MG/ML 5ML MDV 12 MG IM (14:21)
== END 2024-09-06 14:45 | disposition home or self-care (01) ==
LOC: OBOUT 13:14 → OB 13:15
PROVIDERS: PCP Family Medicine; Visit Provider Nurse Practitioner Obstetrics & Gynecology
DX: O60.03 Preterm labor without delivery, third trimester (principal); Z3A.30 30 weeks gestation of pregnancy
CPT/HCPCS: G0463; J0702

== ENCOUNTER 2024-09-23 10:19 | Outpatient (CLI) | payer OTHER, SELFPAY ==
--- NOTE | 2024-09-23 10:36 | EXP.PN ---
Subjective *Date: 09/23/24 *Time: 10:36 Interval history: Madeleine Brock is a 34 yo (CSx1 & SVDx1) presenting for NST and bedside US for position. She denies having contractions and endorses movement Exam Constitutional Constitutional: no acute distress *Routine HEENT Exam Head: Present normocephalic Eye: Present EOMI and PERRL ENT: Present mucous membranes moist *Routine Neck Exam Neck: Present supple; Absent lymphadenopathy *Routine Respiratory Exam Respiratory: Present CTA bilaterally *Routine Cardiovascular Exam Cardiovascular: Present RRR *Routine Abdominal Exam Abdominal: Present soft and normoactive bowel sounds; Absent tenderness *Routine Extremities Exam Extremities: Absent cyanosis, clubbing or edema *Routine Skin Exam Skin: Present warm; Absent rash *Routine Neurological Exam Neurological: Present alert and oriented X3 Assessment and Plan *Assessment and plan (1) labor in third trimester: Status: Acute Qualifiers: labor delivery status: without delivery Qualified Code(s): O60.03 - labor without delivery, third trimester Category: Medical Code(s): O60.03 - labor without delivery, third trimester Plan bedside US confirmed cephalic presentation. proceed with NST keep follow up in office desires repeat CD with BSG. declines TOLAC if presenting in labor
[2024-09-23 10:43] VITALS: BP 121/66; PULSE 112; RESP 18; TEMP 36.8; O2SAT 98; BMI 24.1
--- NOTE | 2024-10-04 20:46 | PC.NURSE ---
Patient called OB unit reporting her history of silent labor and that the contractions have been occurring as they have been recently. Patient reports feeling random tightening and irritability with the occasional contraction in her abdomen and back as she has reported to the MD. Patient states her main concern tonight is feeling as though movement has been lesser than normal but is still present. Patient states that she does live far away and does not want to drive in to get sent home tonight but also does not want to have a baby tonight. Patient encouraged to come to unit to be evaluated considering her history and concerns of labor, especially if pain worsens, contractions occur more frequently, or movement continues to be decreased. Patient wishes to attempt other interventions prior to coming in and patient educated on lying on side and drinking a sugary drink. Patient states she wants to attempt the sugary drink prior and will call if anything worsens or if she decides to come in.
== END 2024-09-23 12:03 | disposition home or self-care (01) ==
LOC: OBOUT 10:21 → OB 10:23
PROVIDERS: PCP Family Medicine; Visit Provider Nurse Practitioner Obstetrics & Gynecology
DX: O60.03 Preterm labor without delivery, third trimester (principal); Z3A.33 33 weeks gestation of pregnancy
CPT/HCPCS: G0463

== ENCOUNTER 2024-10-04 23:15 | Inpatient (IN) | payer OTHER, SELFPAY ==
[2024-10-04 23:21] VITALS: BP 121/59; PULSE 111; RESP 16; TEMP 36.6; O2SAT 98; BMI 24.5
[2024-10-05] MEDS: LACTATED RINGERS 1000ML 1,000 ML 999 ML IV (01:56)
[2024-10-05 04:21] VITALS: BP 106/64; PULSE 98; RESP 17; TEMP 36.9; O2SAT 97
--- NOTE | 2024-10-05 09:38 | EXP.HPDC ---
General Admission date:: 10/04/24 Discharge date: 10/05/24 *Admission Date: 10/04/24 *Chief complaint: decreased movement, irregular contractions *History of present illness: Mrs Madeleine Brock is a 34 yo at 34w5d who presented to [facility] triage with complaint of decreased movement and irregular contractions. Upon arrival to L&D baby's movement had increased. Normal movement. She also stated that contractions stopped on her 1.[address] to the hospital. However, she admitted she was too tired to drive home. History of . On prior exam, cervix was noted to be 3/100/-1. RN was unable to find cervix on exam. [facility] Disclaimer: The information contained in this section may have been updated after the patient was seen, as this information can be updated by other users. Medical History Advanced maternal age (AMA) in Breech presentation Premature cervical dilation Short cervix affecting Abnormal biopsy result Surgical History Hx of section Family History Other Family history of kidney stone Social History Smoking Status: Never smoker alcohol intake: never substance use type: denies use current occupational status: employed Travel in the last 8 weeks: None Other Medical History Have you received the Flu Vaccine for this season: No Have you received the Pneumonia Vaccine: No Review of Systems Review of Systems Review of systems:: pertinent systems reviewed and negative unless documented below Exam Data for Last 24 hours Vital signs and Labs for Last 24 Hours: Temp Pulse Resp BP Pulse Ox O2 Del Method 98.5 F 98 H 17 106/64 L 97 Room Air 10/05/24 04:21 10/05/24 04:21 10/05/24 04:21 10/05/24 04:21 10/05/24 04:21 10/05/24 04:21 I & O for Last 24 hours: Intake & Output 10/02/24 10/03/24 10/04/24 10/05/24 23:59 23:59 23:59 23:59 Weight 134 lb Constitutional Constitutional: no acute distress and cooperative *Routine HEENT Exam Head: Present normocephalic and atraumatic Eye: Absent conjunctivae pink ENT: Present mucous membranes moist *Routine Neck Exam Neck: Present full ROM *Routine Respiratory Exam Respiratory: Present CTA bilaterally and normal respiratory effort *Routine Cardiovascular Exam Cardiovascular: Present RRR *Routine Abdominal Exam Abdominal: Present soft (Gravid); Absent tenderness *Routine Rectal Exam Rectal:: deferred *Routine Genitalia Exam Genitalia:: normal female *Routine Extremities Exam Extremities: Present full ROM; Absent edema or calf tenderness *Routine Neurological Exam Neurological: Present alert, moving all extremities and normal speech Routine Psychiatric Exam Psychiatric: Present normal affect and cooperative Meds Home Medications and Allergies Home Medications ?Medication ?Instructions ?Recorded ?Confirmed ?Type vits no.126-ferrous fum 1 tab PO DAILY 04/27/24 10/05/24 History 28 mg iron-folic acid 800 mcg tablet (Classic ) famotidine 20 mg tablet (Pepcid) 20 mg PO DAILY #30 tabs 06/20/24 10/05/24 Rx ferrous sulfate 325 mg (65 mg 325 mg PO DAILY #30 tabs 06/20/24 10/05/24 Rx iron) tablet nifedipine 10 mg capsule 10 mg PO TID PRN contractions #60 09/05/24 10/05/24 Rx caps New Prescriptions to Start Prescriptions: Allergies Allergy/AdvReac Type Severity Reaction Status Date / Time No Known Allergies Allergy Verified 10/03/24 08:34 Hospital Course Hospital Course Hospital Course: Mrs Madeleine Brock is a 34 yo at 34w5d who presented to [facility] triage with complaint of decreased movement and irregular contractions. Upon arrival to L&D baby's movement had increased. Normal movement. She also stated that contractions stopped on her 1.[address] to the hospital. However, she admitted she was too tired to drive home. History of . On prior exam, cervix was noted to be 3/100/-1. RN was unable to find cervix on exam. She was kept for observation. NST reactive. [place] demostrated irritability. SVE by OB this morning was 3/90/-1, soft and very posterior. Exam unchanged from prior exam. She was discharged home with labor precautions and instructed to follow-up as scheduled. DS: Diagnosis Discharge Diagnosis (1) Advanced maternal age (AMA) in : Status: Acute (2) Short cervix affecting : Status: Acute Code(s): O26.879 - Cervical shortening, unspecified trimester (3) Premature cervical dilation: Status: Acute Code(s): O34.30 - Maternal care for cervical incompetence, unspecified trimester Qualifiers: Trimester: third trimester Qualified Code(s): O34.33 - Maternal care for cervical incompetence, third trimester (4) Hx of section: Status: Acute Code(s): Z98.891 - History of uterine scar from previous surgery Discharge Plan Disposition Patient Disposition: Home, Self-Care Condition: Good Follow up Plan Prescriptions/Medication Reconciliation: Continued famotidine [Pepcid] 20 mg tablet 20 mg PO DAILY Qty: 30 11RF ferrous sulfate 325 mg (65 mg iron) tablet 325 mg PO DAILY Qty: 30 11RF nifedipine 10 mg capsule 10 mg PO TID PRN (Reason: contractions) Qty: 60 1RF Classic 28 mg iron- 800 mcg tablet 1 tab PO DAILY Problem Reconciliation Problems Reviewed?: Yes Patient Discharge Instructions ACTIVITY: Continue current activity DIET: continue same diet and regular diet Patient Instructions: Antepartum Care Print Language: Lithuanian Providers Primary Care Provider: Ninfa Ventura Admit Provider: Loretta Beltrán Attending Provider: Loretta Beltrán
== END 2024-10-05 09:45 | disposition home or self-care (01) | DRG 832 ==
PROVIDERS: Admitting Provider Obstetrics & Gynecology; PCP Family Medicine; Visit Provider Obstetrics & Gynecology
DX: O36.8130 Decreased fetal movements, third trimester, not applicable or unspecified (principal); O26.873 Cervical shortening, third trimester; Z3A.34 34 weeks gestation of pregnancy; O34.30 Maternal care for cervical incompetence, unspecified trimester; Z98.891 History of uterine scar from previous surgery
CPT/HCPCS: G0378; G0463; J7120

== ENCOUNTER 2024-10-11 15:44 | Outpatient (CLI) | payer OTHER, SELFPAY | END 2024-10-11 23:59 | disposition home or self-care (01) | LOC: LAB.DROPOF 10-12 15:44 | PROVIDERS: PCP Nurse Practitioner Obstetrics & Gynecology; Visit Provider Nurse Practitioner Obstetrics & Gynecology | DX: O34.33 Maternal care for cervical incompetence, third trimester (principal) | CPT/HCPCS: 86403 ==

== ENCOUNTER 2024-10-12 20:44 | Outpatient (CLI) | payer OTHER, SELFPAY ==
[2024-10-12 20:56] VITALS: BP 123/86; PULSE 125; RESP 18; TEMP 37.1; O2SAT 98; BMI 24.8
== END 2024-10-12 21:36 | disposition home or self-care (01) ==
LOC: OBOUT 20:46 → OB 20:46
PROVIDERS: PCP Family Medicine; Visit Provider Nurse Practitioner Obstetrics & Gynecology
DX: O60.03 Preterm labor without delivery, third trimester (principal); Z3A.35 35 weeks gestation of pregnancy
CPT/HCPCS: G0463

== ENCOUNTER 2024-10-13 14:23 | Outpatient (CLI) | payer OTHER, SELFPAY ==
--- NOTE | 2024-10-13 14:24 | US_ITS ---
PROCEDURE: US OB BIOPHYSICAL PROFILE CLINICAL INDICATION: SGA COMPARISON: US US OB <= 14 WEEKS FETUS from 03/18/2024 US US OB /MATERNAL DETAIL from 06/24/2024 US US OB FOLLOW UP from 09/05/2024 US US OB TRANSVAGINAL from 09/05/2024 FINDINGS: Transabdominal sonographic images of the uterus were obtained. From her established due date she is 35weeks 6days. The following parameters are obtained: Viable Fetus in the cephalic presentation with a posterior placenta grade 2. Average ultrasound age is 35weeks 2days Estimated weight 2,644g, 15 lb 13 oz The cervix measures 1.01 cm in length. Measurements: heart Rate = normal although not measured BPD = 34weeks 5days, 23 percentile HC = 35weeks 4days, 13 percentile AC = 35weeks 6days, 59 percentile FL = 34weeks 4days, 14 percentile HC/AC is 0.99 FL/BPD is 0.78 FL/AC is 0.21 35 percentile Amniotic fluid index: 14.53cm, MVP 6.81 cm Qualitative AFV:2 Breathing movements: 2 Gross Body Movements: 2 Tone: 2 Biophysical profile score: 8 Doppler evaluation of the umbilical artery: SD ratio: 2.17-3.1 Resistive index: 0.54 No obvious anomalies evident.Kidneys, profile, stomach, bladder, three-vessel cord appear normal. IMPRESSION: 1. Viable fetus in the cephalic presentation with a posterior placenta grade 2. 2. The fluid is within normal limits with an amniotic fluid index 14.53 cm, MVP 6.81 cm. 3. Biophysical profile is 8/8 with good breathing movement and movement seen. 4. SD ratio is normal 2.17-3.1. 5. Limited anatomical scan appears normal. 6. There has been good interval growth with the fetus currently 35th percentile. Dictated by: Maxwell Lin MD 10/14/2024 13:32 Maxwell Lin MD in OV 10/14/2024 13:32
== END 2024-10-13 23:59 | disposition home or self-care (01) ==
LOC: RAD 14:24
PROVIDERS: PCP Nurse Practitioner Obstetrics & Gynecology; Visit Provider Nurse Practitioner Obstetrics & Gynecology
DX: O36.5930 Maternal care for other known or suspected poor fetal growth, third trimester, not applicable or unspecified (principal); O34.33 Maternal care for cervical incompetence, third trimester; O26.873 Cervical shortening, third trimester; O60.03 Preterm labor without delivery, third trimester; Z98.891 History of uterine scar from previous surgery; Z3A.35 35 weeks gestation of pregnancy
CPT/HCPCS: 76816; 76819; 76820

== ENCOUNTER 2024-10-18 21:04 | Outpatient (CLI) | payer OTHER, SELFPAY ==
[2024-10-18 21:33] VITALS: BMI 23.8
[2024-10-18] MEDS: DEXTROSE 5%-LACTATED RINGERS 1,000 ML 999 ML IV (21:45)
[2024-10-18 21:57] LABS: Albumin Level 3.4 g/dl (3.5-5.0); Chloride 102 mmol/L (98-107); Potassium 3.5 mmoL/L (3.5-5.1); Sodium 132 mmol/L (136-145)
[2024-10-18 22:00] LABS: Alanine Aminotransferase 24 U/L (12-78); Albumin/Globulin Ratio 1.2 (1.1-1.8); Alkaline Phosphatase 192 U/L (38-126); Anion Gap 11.5 mEq/L (5-15); Aspartate Amino Transferase 36 U/L (14-36); Bilirubin,Total 0.3 mg/dl (0.2-1.3); Blood Urea Nitrogen 14 mg/dl (7-17); Carbon Dioxide 22 mmol/L (22.0-30.0); Creatinine Clearance Estimated 105 mL/min (50-200); Estimated Glomerular Filt Rate 95 ml/min (>60); GFR (African American) 115 ML/MIN (>60); Globulin 2.9 g/dL (1.3-3.2); Total Protein,Serum 6.3 g/dl (6.3-8.2)
[2024-10-18 22:01] LABS: Glucose 112 mg/dl (74-100)
[2024-10-18 22:02] LABS: Hematocrit 30.2 % (37.0-47.0); Red Blood Count 3.44 M/mm3 (4.20-5.40); White Blood Count 9.4 K/mm3 (4.8-10.8)
[2024-10-18 22:03] LABS: Basophils % 0.2 % (0.1-2.0); Eosinophils % 0.8 % (0.1-12.0); Lymphocytes # 2.7 K/mm3 (0.7-4.5); Mean Corpuscular HGB Conc 33.1 g/dL (31.8-35.4); Mean Corpuscular Hemoglobin 29.1 pg (27.0-31.2); Mean Corpuscular Volume 87.8 fl (81-99); Mean Platelet Volume 9.1 fl (7.4-10.4); Monocytes # 0.6 K/mm3 (0.1-1.0); Monocytes % 6.4 % (1.7-9.3); Neutrophils # 5.9 K/mm3 (1.8-7.8); Neutrophils % 62.6 % (37.0-80.0); Platelet Count 312 K/mm3 (142-424); Red Cell Distribution Width 12.1 % (11.5-17.5)
[2024-10-18 22:04] LABS: Eosinophils # 0.1 K/mm3 (0.0-0.4)
[2024-10-18] MEDS: DEXTROSE 5%-LACTATED RINGERS 500 ML 999 ML IV (22:30)
[2024-10-18 22:45] VITALS: BP 118/70; PULSE 93; RESP 18; TEMP 37.1; O2SAT 98; BMI 23.8
== END 2024-10-18 23:06 | disposition home or self-care (01) ==
LOC: OBOUT 21:06 → OB 21:06
PROVIDERS: PCP Family Medicine; Visit Provider Nurse Practitioner Obstetrics & Gynecology
DX: O47.03 False labor before 37 completed weeks of gestation, third trimester (principal); Z3A.36 36 weeks gestation of pregnancy; E86.0 Dehydration
CPT/HCPCS: 80053; 85025; G0463

== ENCOUNTER 2024-10-24 09:33 | Outpatient (CLI) | payer OTHER, SELFPAY ==
[2024-10-24 09:39] VITALS: BMI 24.0
[2024-10-24 09:47] VITALS: BMI 24.0
== END 2024-10-24 10:26 | disposition home or self-care (01) ==
LOC: OBOUT 09:34 → OB 09:36
PROVIDERS: PCP Family Medicine; Visit Provider Obstetrics & Gynecology
DX: O60.03 Preterm labor without delivery, third trimester (principal); Z3A.37 37 weeks gestation of pregnancy
CPT/HCPCS: G0463

== ENCOUNTER 2024-11-02 22:27 | Outpatient (CLI) | payer OTHER, SELFPAY ==
[2024-11-02 22:45] VITALS: BP 110/75; PULSE 114; RESP 18; TEMP 36.7; O2SAT 97; BMI 24.7
[2024-11-03 00:03] VITALS: BMI 24.7
[2024-11-03 03:16] LABS: Microscopic, Urine URINE MICROSCOPIC (MICROSCOPIC)
[2024-11-03 03:18] LABS: Appearance,Urine CLEAR (Clear); Bilirubin,Urine Negative (Negative); Blood, Urine Negative (Negative); Color,Urine YELLOW (Yellow); Glucose,Urine (UA) Negative (Negative); Ketones,Urine Negative (Negative); Leukocyte Esterase,Urine Negative (Negative); Nitrate,Urine Negative (Negative); Protein,Urine Negative (Negative); Specific Gravity, Urine 1.015 (1.005-1.030); Urobilinogen,Urine 0.2 EU/dl (0.2)
[2024-11-03 03:28] LABS: Benzodiazepines Screen,Urine Negative ng/ml (<200)
[2024-11-03 03:29] LABS: Amphetamine/Metha Screen,Urine Negative ng/ml (<1000); Bacteria,Urine 1+ /lpf; Barbiturates Screen,Urine Negative ng/ml (<200)
[2024-11-03 03:30] LABS: Cannabinoid Screen,Urine Negative ng/ml (<50)
[2024-11-03 03:31] LABS: Cocaine Screen,Urine Negative ng/ml (<300); Methadone Screen,Urine Negative ng/ml (<300)
[2024-11-03 03:32] LABS: Opiate Screen,Urine Negative ng/ml (<300)
[2024-11-03 03:33] LABS: Phencyclidine Screen,Urine Negative ng/ml (<25)
== END 2024-11-03 01:00 | disposition home or self-care (01) ==
LOC: OBOUT 22:29 → OB 22:38
PROVIDERS: PCP Family Medicine; Visit Provider Nurse Practitioner Obstetrics & Gynecology
DX: O60.03 Preterm labor without delivery, third trimester (principal); Z3A.38 38 weeks gestation of pregnancy
CPT/HCPCS: 80307; 81001; G0463

== ENCOUNTER 2024-11-07 05:00 | Inpatient (IN) | payer OTHER, SELFPAY ==
[2024-11-07] VITALS (8 sets, daily range): BP systolic 111–161; BP diastolic 78–95; PULSE 79–105; RESP 17–18; TEMP 36.4–37.1; O2SAT 97–99; BMI 24.7
[2024-11-07 05:39] LABS: Microscopic, Urine URINE MICROSCOPIC (MICROSCOPIC)
[2024-11-07 05:40] LABS: Basophils % 0.2 % (0.1-2.0); Eosinophils # 0.1 K/mm3 (0.0-0.4); Eosinophils % 0.9 % (0.1-12.0); Hematocrit 29.9 % (37.0-47.0); Hemoglobin 10.1 g/dL (12.2-16.2); Lymphocytes # 2.7 K/mm3 (0.7-4.5); Lymphocytes % 21.5 % (10-50); Mean Corpuscular HGB Conc 33.8 g/dL (31.8-35.4); Mean Corpuscular Hemoglobin 28.9 pg (27.0-31.2); Mean Corpuscular Volume 85.7 fl (81-99); Mean Platelet Volume 9.2 fl (7.4-10.4); Monocytes # 0.6 K/mm3 (0.1-1.0); Monocytes % 4.6 % (1.7-9.3); Neutrophils # 9.2 K/mm3 (1.8-7.8); Neutrophils % 72.1 % (37.0-80.0); Platelet Count 288 K/mm3 (142-424); Red Blood Count 3.49 M/mm3 (4.20-5.40); Red Cell Distribution Width 12.5 % (11.5-17.5); White Blood Count 12.7 K/mm3 (4.8-10.8)
[2024-11-07 05:43] LABS: Bilirubin,Urine Negative (Negative); Blood, Urine Negative (Negative); Color,Urine YELLOW (Yellow); Glucose,Urine (UA) Negative (Negative); Ketones,Urine Negative (Negative); Leukocyte Esterase,Urine 2+ (Negative); Nitrate,Urine Negative (Negative); Protein,Urine Negative (Negative); Urobilinogen,Urine 0.2 EU/dl (0.2)
[2024-11-07] MEDS: LACTATED RINGERS 1000ML 1,000 ML 500 ML IV (05:44)
[2024-11-07 05:46] LABS: Chloride 102 mmol/L (98-107); Potassium 3.9 mmoL/L (3.5-5.1); Sodium 129 mmol/L (136-145)
[2024-11-07 05:48] LABS: Appearance,Urine Slightly Cloudy (Clear)
[2024-11-07 05:49] LABS: Anion Gap 9.9 mEq/L (5-15); Blood Urea Nitrogen 13 mg/dl (7-17); Calcium 9.2 mg/dl (8.4-10.2); Carbon Dioxide 21 mmol/L (22.0-30.0); Creatinine Clearance Estimated 127 mL/min (50-200); Estimated Glomerular Filt Rate 114 ml/min (>60); GFR (African American) 138 ML/MIN (>60); Glucose 77 mg/dl (74-100)
[2024-11-07 05:53] LABS: Bacteria,Urine Trace /lpf
[2024-11-07 05:55] LABS: Amphetamine/Metha Screen,Urine Negative ng/ml (<1000)
[2024-11-07 05:56] LABS: Barbiturates Screen,Urine Negative ng/ml (<200); Benzodiazepines Screen,Urine Negative ng/ml (<200)
[2024-11-07 05:57] LABS: Cannabinoid Screen,Urine Negative ng/ml (<50)
[2024-11-07 05:58] LABS: Cocaine Screen,Urine Negative ng/ml (<300); Methadone Screen,Urine Negative ng/ml (<300)
[2024-11-07 05:59] LABS: Opiate Screen,Urine Negative ng/ml (<300)
[2024-11-07 06:00] LABS: Phencyclidine Screen,Urine Negative ng/ml (<25)
--- NOTE | 2024-11-07 06:43 | P.PNANES_ITS ---
[facility] Disclaimer: The information contained in this section may have been updated after the patient was seen, as this information can be updated by other users. Medical History delivery delivered Advanced maternal age (AMA) in Breech presentation Premature cervical dilation Short cervix affecting Abnormal biopsy result Surgical History Hx of section Family History Other Family history of kidney stone Social History Smoking Status: Never smoker alcohol intake: never substance use type: denies use current occupational status: employed Travel in the last 8 weeks: None Have you lived/traveled outside US in past 30 days?: No Contact w/someone who lives/traveled outside US past 30 days?: No Exposure to someone with infectious disease in past 14 days?: No Do you have a fever (greater than 100.4 F or 38 C)?: No Have you tested positive for COVID-19: No Exposed to someone with COVID-19 in past 14 days?: No Do you have a sore throat?: No Do you have a cough?: No Do you have any weakness?: No Do you have any diarrhea?: No Are you experiencing any unusual bleeding?: No Do you have any muscle aches/pain?: No Do you have any abdominal pain?: No Are you experiencing loss of taste or smell?: No [facility] Anesthesia Checklist Patient Identification Patient Identification: Arm Band and Family Structural Data Admitted From: Inpatient Planned Operative Procedure/s: ' and BTL Consent for Planned Operative Procedure(s) Verified: Yes Verified Documents: Surgical Consent and History and Physical NPO Status Verified Time NPO: 00:00 Additional verifications Patient : Yes Anesthesia Reactions: Yes Hx Blood Transfusions: No Blood Transfusion Reaction: No Cephalosporin Allergy: No Previous Colonoscopy: No Airway Assessment Mallampati Score:: Class I C-Spine Mobility Assessed: Yes TMJ Mobility Assessed: Yes Dentition: Good Dentition Neurological Assessment Level of Consciousness: Awake, Alert, Appropriate and Follows Commands Hx Seizures: No Numbness or tingling in extremities: No Anesthesia Plan Anesthesia Risk discussed: Yes ASA Class: I Anesthesia Type: Spinal Preoperative Comments Pre-Operative Comments: 39/3 gestation. previous X2.
--- NOTE | 2024-11-07 08:47 | EXP.ANES.I ---
[facility] Anesthesia Record Part I Anesthesia Record I Intake, IV Amount: 600 Hydration: Adequate Estimated blood loss (mL): 200 Urine output (mL): 150 Blood Products used (#): none Blood Pressure: 161/95 SaO2: 98 Pulse Rate: 105 Airway Patency: Patent Respiratory Rate: 18 Temperature: 97.6 F Patient is:: Awake and Stable Stable to PACU at:: 08:35
--- NOTE | 2024-11-07 08:49 | P.OP_ITS ---
Date of procedure: 11/07/24 Pre-op Diagnosis:: Term , previous section, desire for sterilization Post-op Diagnosis:: Term , previous section, desire for sterilization Procedure performed:: Repeat lower segment transverse section and bilateral salpingectomy Surgeon:: Maxwell Lin MD Ballpoint Pen Cartridge Tester(s):: Dr. Escalante SENIOR OCCUPATIONAL THERAPIST:: Uriel Bryant Anesthesia: spinal Estimated blood loss (mL): 250 Clinical Note:: She is a a 34-year-old 6 para 2 aborta 3 who was 39 weeks gestational age. She had previous section and as result of that was offered repeat lower segment transverse section at term. She also expressed desire for sterilization. The risks and benefits of surgery as well as the irreversibility of bilateral salpingectomy were discussed with the patient prior to delivery. Operative findings:: She delivered a liveborn male child at 7:52 AM on the morning of November 07, 2024. The baby had Apgars of 8 at 1 minute and 9 at 5 minutes. There was a loose nuchal cord. Operative note:: She was taken to the operating room where spinal anesthesia was found be adequate. She was prepped and draped in normal sterile fashion in the supine position with a leftward tilt. A Correa catheter was in the bladder. A Pfannenstiel skin incision was made with knife. I made a crescentic incision around her scar and removed the scar tissue from the skin. I then carried through to the underlying layer of fascia with cautery. The fascia was opened in the midline with cautery and extended laterally using Botello scissors. Allison clamps were applied to the superior aspect of the fascial incision which was tented up and the underlying rectus muscles dissected off using cautery. The Allison clamps were then applied to the inferior aspect of the fascial incision which in a similar fashion was tented up and the underlying rectus muscles dissected off using cautery. The rectus muscles were then in the midline, the peritoneum identified, and entered sharply with Metzenbaum scissors. This incision was then extended superiorly and inferiorly with cautery. We had good visualization of the bladder inferiorly. An Javier retractor was then inserted into the abdominal cavity. The lower uterine segment was extremely thin and there was just a membrane the baby from the abdominal cavity. The uterine muscle was completely gone. The bladder peritoneum was then opened in the midline and extended laterally using Metzenbaum scissors. A bladder flap was created digitally. Transverse incision was made through the amnion. This incision was then extended superiorly and inferiorly using fingers traction. There was clear amniotic fluid. The 's head was then delivered atraumatically. There was a loose nuchal cord. This was easily reduced. This was followed by the anterior shoulder and the rest of the infant's body atraumatically. The oropharynx and nasopharynx were bulb suctioned. The cord was clamped and cut. The infant was then handed off to Dr. Ledezma who assigned Apgars of 8 at 1 minute and 9 at 5 minutes. We then obtained cord blood. Using gentle traction on the cord and countertraction on the fundus I was able to easily deliver the placenta intact. It had a normal three-vessel cord. The uterus was then cleared of clots and debris . The uterine incision was then closed using running 0 Vicryl suture in a locked fashion. I elected to close the uterus and just 1 layer since the lower uterine segment muscle was so thin. The bladder peritoneum was then closed using running 2-0 Vicryl suture in a locked fashion. The gutters and cul-de-sac were then cleared of clots and debris . Once again hemostasis was assured. There was small amount of bleeding and ooze so I elected to spray Juani along the uterine incision. We then performed a bilateral salpingectomy. The distal end of the tube was grasped with my fingers and using the endoseal I cut through the mesosalpinx. I then cut across the tube close to the cornua. This was similar performed on the opposite side. Tubes were sent to pathology. After once again assuring hemostasis the uterus was then returned to the abdominal cavity. The peritoneum was grasped with Nuris clamps and closed using running 2-0 Vicryl suture. The rectus muscles were then reapproximated using running 0 Vicryl suture. The fascia was closed using running #1 Vicryl suture. The subcutaneous tissues were then irrigated with warm water followed by closure Hannah's fascia using running 2-0 Monocryl suture. The skin was closed with dissolvable saul. I then cleaned the skin with Hibiclens. Steri-Strips were applied. Sterile dressings were applied. She tolerated the procedure well and was taken to the recovery room in excellent condition. All sponges, instrument and needle counts were correct. Estimated blood loss was approximately 250 mL. Condition: stable Disposition: PACU Specimens:: Bilateral fallopian tubes Complications:: None
[2024-11-07] MEDS: OXYTOCIN/RINGERS LACTATE 30 UNITS/500 ML BAG 40 UNITS IV (09:15)
[2024-11-07] MEDS: LACTATED RINGERS 1000ML 1,000 ML 125 ML IV (09:16)
--- NOTE | 2024-11-07 09:27 | HMH.PHAINT1 ---
Pharmacy Intervention Comments: MEDICATION RECONCILIATION COMPLETED ON PATIENT USING EXTERNAL FILL HISTORY FROM PHARMACY AND LIST FROM [facility]ER[facility]KER DEMONSTRATOR OFFICE. -SONNY SALAZARD
[2024-11-07] MEDS: KETOROLAC 30MG/ML VIAL 30 MG IV ×3 (10:10→21:28)
[2024-11-07] MEDS: OXYCODONE 5MG IMMEDIATE RELEASE TABLET 10 MG PO ×3 (11:15→21:28)
[2024-11-07] MEDS: SENNA 8.6MG TABLET 8.6 MG PO (11:16)
[2024-11-07] MEDS: ACETAMINOPHEN 500MG TAB 1000 MG PO ×3 (11:16→23:14)
[2024-11-07 12:08] LABS: Microscopic,Cath URINE MICROSCOPIC (MICROSCOPIC)
[2024-11-07 13:38] LABS: Appearance,Urine/Cath CLEAR (Clear); Bilirubin,Cath Negative (Negative); Blood, Urine/Cath Negative (Negative); Color,Urine/Cath YELLOW (Yellow); Glucose,Urine/Cath (UA) Negative (Negative); Ketones,Urine/Cath Negative (Negative); Leukocyte Esterase,Cath Negative (Negative); Nitrate,Cath Negative (Negative); PH,Urine/Cath 7.5 (5.0-8.5); Protein,Urine/Cath Negative (Negative); Specific Gravity, Urine/Cath <= 1.005 (1.005-1.030); Urobilinogen,Cath 0.2 EU/dl (0.2)
[2024-11-07 13:53] LABS: Bacteria,Urine/Cath TRACE /lpf; Squamous Epithelial Ur./Cath Occasional #/hpf (0-5)
--- NOTE | 2024-11-07 14:27 | EXP.ANES.II ---
[facility] Anesthesia Record Part II Anesthesia Record Part II Discharge Time: 09:05 Destination: Obstetric PACU nurse assessment reviewed?: Yes Patient Condition:: Good Anesthesia Complications:: None Swallowing reflex intact?: Yes Airway Patency: Patent Cyanosis?: No Blood Pressure: 142/90 SaO2: 97 Respiratory Rate: 18 Pulse Rate: 94 Temperature: 97.6 F Mental Status: Alert & Oriented Pain level:: 0 Nausea and/or vomitting:: None Intake, IV Amount: 0 Hydration: Adequate
[2024-11-07] MEDS: CEFAZOLIN SODIUM 2 GM in 0.9 % SODIUM CHLORIDE 100 ML IV ×2 (15:37→23:14)
[2024-11-07] MEDS: PRENATAL MULTIVITAMIN W/IRON 1 EACH PO (17:14)
[2024-11-07] MEDS: SIMETHICONE 80MG CHEWABLE TABLET 160 MG PO (18:40)
[2024-11-07] MEDS: LANOLIN CREAM 40GM TP (20:17)
[2024-11-08] MEDS: ALUMINUM/MAGNESIUM/SIMETHICONE 30ML UDC 30 ML PO (01:46)
[2024-11-08] MEDS: OXYCODONE 5MG IMMEDIATE RELEASE TABLET 10 MG PO ×4 (02:53→18:02)
[2024-11-08] MEDS: SENNA 8.6MG TABLET 8.6 MG PO ×2 (02:53→16:23)
[2024-11-08] MEDS: KETOROLAC 30MG/ML VIAL 30 MG IV ×2 (04:05→09:47)
[2024-11-08 04:09] VITALS: BP 131/83; PULSE 70; RESP 17; TEMP 36.6; O2SAT 97
[2024-11-08] MEDS: ACETAMINOPHEN 500MG TAB 1000 MG PO ×4 (05:26→22:34)
[2024-11-08 07:06] LABS: Basophils % 0.2 % (0.1-2.0); Eosinophils # 0.1 K/mm3 (0.0-0.4); Eosinophils % 0.5 % (0.1-12.0); Hematocrit 33.5 % (37.0-47.0); Hemoglobin 10.9 g/dL (12.2-16.2); Lymphocytes # 4.1 K/mm3 (0.7-4.5); Lymphocytes % 29.3 % (10-50); Mean Corpuscular HGB Conc 32.5 g/dL (31.8-35.4); Mean Corpuscular Hemoglobin 28.6 pg (27.0-31.2); Mean Corpuscular Volume 87.9 fl (81-99); Monocytes # 0.7 K/mm3 (0.1-1.0); Monocytes % 4.7 % (1.7-9.3); Neutrophils % 64.7 % (37.0-80.0); Platelet Count 311 K/mm3 (142-424); Red Blood Count 3.81 M/mm3 (4.20-5.40); Red Cell Distribution Width 12.7 % (11.5-17.5)
--- NOTE | 2024-11-08 09:45 | P.PN_ITS ---
Subjective *Date: 11/08/24 *Time: 09:45 Interval history: She is 1 day post repeat section and bilateral salpingectomy. She is doing very well. She says that her pain is well-controlled. She is taking Toradol and Oxy 10's. She did have a tap block and she said this seems to be working very well. She is pumping her breasts. She otherwise feels well. Her lochia is normal. Medical Exam Vital signs and Labs for Last 24 Hours: Vital Signs Temp Pulse Resp BP Pulse Ox O2 Del Method 11/08/24 04:09 97.9 F 70 17 131/83 97 Room Air 11/07/24 20:15 97.7 F 79 17 130/81 98 Room Air 11/07/24 14:28 18 Intake and Output 11/07/24 11/08/24 11/08/24 19:59 03:59 11:59 Intake Total 0 / 0 Output Total 1700 / 1700 Balance -1700 / -1700 Intake: Intake, Total IV Amount 0 / 0 Output: Output, Urine Amount 600 / 600 Output, Urine Amount (Catheter) 1100 / 1100 Correa 1100 / 1100 Other: Number of Voids 1 Laboratory Results - last 24 hr 11/07/24 07:30: Urine Color Yellow, Urine Appearance Clear, Urine pH 7.5, Ur Specific [place] <= 1.005, Urine Protein Negative, Urine Glucose (UA) Negative, Urine Ketones Negative, Urine Blood Negative, Urine Nitrate Negative, Urine Bilirubin Negative, Urine Urobilinogen 0.2, Ur Leukocyte Esterase Negative, Urine RBC None, Urine WBC None, Ur Squamous Epith Cells Occasional, Urine Bacteria Trace 11/08/24 06:53: WBC 14.0 H, RBC 3.81 L, Hgb 10.9 L, Hct 33.5 L, MCV 87.9, MCH 28.6, MCHC 32.5, RDW 12.7, Plt Count 311, MPV 9.0, Neut % (Auto) 64.7, Lymph % (Auto) 29.3, [place] % (Auto) 4.7, Eos % (Auto) 0.5, Baso % (Auto) 0.2, Neut # (Auto) 9.0 H, Lymph # (Auto) 4.1, [place] # (Auto) 0.7, Eos # (Auto) 0.1, Baso # (Auto) 0.0 I & O for Labs for Last 24 Hours: Intake & Output 11/05/24 11/06/24 11/07/24 11/08/24 11:59 11:59 11:59 11:59 Intake Total 600 / 600 0 / 0 Output Total 1700 / 1700 Balance 600 / 600 -1700 / -1700 Weight 135 lb Head: Present atraumatic and normocephalic Neck: Present normal inspection Respiratory: Present normal respiratory effort; Absent accessory muscle use GI: Present soft; Absent distention or guarding Rectal (female): Present deferred (female): Present deferred Assessment and Plan *Assessment and plan (1) Advanced maternal age (AMA) in : Status: Acute Category: Medical (2) Hx of section: Status: Acute Category: Surgical Code(s): Z98.891 - History of uterine scar from previous surgery (3) Delivery by section of full-term : Status: Acute Category: Medical Code(s): O82 - Encounter for delivery without indication (4) Sterilization: Status: Acute Category: Medical Code(s): Z30.2 - Encounter for sterilization Plan She is doing very well today. She is pumping her breast. Her pain seems to be well-controlled. Her affect is normal. Her mood is normal. We will plan to send her home tomorrow.
[2024-11-08] MEDS: FAMOTIDINE 20MG TABLET 20 MG PO (09:47)
--- NOTE | 2024-11-08 09:49 | P.HP_ITS ---
OB - H&P: HPI Antepartum History of Present Illness Chief complaint: Term , previous section, desire for sol rilization History of present illness: She is a 34-year-old 6 para 2 aborta 3 who is 39 weeks gestational age. She has had a previous section and is admitted for repeat lower segment transverse section at term. She also expresses desire for sterilization. The risks and benefits of surgery as well as the irreversibility of bilateral salpingectomy were discussed with the patient prior to History of Present Criteria for establishing EDC:: LMP confirmed by 1st trimester US care: good care Ultrasounds: normal 1st trimester US, normal mid trimester US and abnormal US findings Abnormal ultrasound findings: She was found to have a shortened cervix at about 32 weeks. She had had a previously procedure prior to getting Obstetrical complications: none Medical complications: none Labs Blood type: O (+) positive Rubella: immune RPR/VDRL: nonreactive GBS status: negative HBsAG: negative PFSH PFSH Disclaimer: The information contained in this section may have been updated after the patient was seen, as this information can be updated by other users. Medical History delivery delivered Advanced maternal age (AMA) in Breech presentation Premature cervical dilation Short cervix affecting Abnormal biopsy result Surgical History Hx of section Family History Family history of kidney stone Social History Smoking Status: Never smoker alcohol intake: never substance use type: denies use current occupational status: employed Travel in the last 8 weeks: None Have you lived/traveled outside [place] in past 30 days?: No Contact w/someone who lives/traveled outside [place] past 30 days?: No Exposure to someone with infectious disease in past 14 days?: No Do you have a fever (greater than 100.4 F or 38 C)?: No Have you tested positive for COVID-19: No Exposed to someone with COVID-19 in past 14 days?: No Do you have a sore throat?: No Do you have a cough?: No Do you have any weakness?: No Do you have any diarrhea?: No Are you experiencing any unusual bleeding?: No Do you have any muscle aches/pain?: No Do you have any abdominal pain?: No Are you experiencing loss of taste or smell?: No Other Medical History Have you received the Flu Vaccine for this season: No Have you received the Pneumonia Vaccine: No Review of Systems Review of Systems Review of systems:: pertinent systems reviewed and negative unless documented below Meds Home Medications and Allergies Home Medications ?Medication ?Instructions ?Recorded ?Confirmed ?Type vits no.126-ferrous fum 1 tab PO DAILY 04/27/24 11/07/24 History 28 mg iron-folic acid 800 mcg tablet (Classic ) famotidine 20 mg tablet (Pepcid) 20 mg PO DAILY #30 tabs 06/20/24 11/07/24 Rx ferrous sulfate 325 mg (65 mg 325 mg PO DAILY #30 tabs 06/20/24 11/07/24 Rx iron) tablet New Prescriptions to Start Prescriptions: Allergies Allergy/AdvReac Type Severity Reaction Status Date / Time No Known Allergies Allergy Verified 11/01/24 14:53 OB - H&P: Exam Physical Exam Vital signs: Temp Pulse Resp BP Pulse Ox O2 Del Method 97.9 F 70 17 131/83 97 Room Air 11/08/24 04:09 11/08/24 04:09 11/08/24 04:09 11/08/24 04:09 11/08/24 04:09 11/08/24 04:09 Constitutional no acute distress Routine HEENT Exam Head: Present normocephalic Eye: Present EOMI ENT: Present mucous membranes moist Routine Neck Exam Present supple Routine Chest/Breast/Axilla Exam Chest wall: Absent tenderness Routine Respiratory Exam Present normal respiratory effort and symmetric chest movement; Absent accessory muscle use Routine Cardiovascular Exam Present RRR Routine Abdominal Exam Present soft; Absent tenderness Routine Rectal Exam Patient deferred: visual exam Routine Exam Patient deferred: external exam Routine Extremities Exam Present full ROM; Absent cyanosis Routine Back/Spine/Pelvis Exam Back/Spine: Present full ROM Routine Skin Exam Present intact Routine Neurological Exam Present alert and oriented X3 Routine Psychiatric Exam Present normal affect OB - Results Labs Labs: Short CBC 11/08/24 Range/Units 06:53 WBC 14.0 H (4.8-10.8) K/mm3 Hgb 10.9 L (12.2-16.2) g/dL Hct 33.5 L (37.0-47.0) % Plt Count 311 (142-424) K/mm3 Urine 11/07/24 Range/Units 07:30 Urine Color Yellow (Yellow) Urine Appearance Clear (Clear) Urine pH 7.5 (5.0-8.5) Ur Specific [place] <= 1.005 (1.005-1.030) Urine Protein Negative (Negative) Urine Glucose (UA) Negative (Negative) OB - A/P Antepartum (1) Advanced maternal age (AMA) in : Status: Acute (2) Hx of section: Status: Acute (3) Delivery by section of full-term infant: Status: Acute (4) Sterilization: Status: Acute Additional Plan Planning to breastfeed?: Yes Plan: other Additional Information:: She is admitted for repeat lower segment transverse section and bilateral salpingectomy.
[2024-11-08 16:21] VITALS: BP 115/77; PULSE 88; RESP 18; TEMP 36.8; O2SAT 98
[2024-11-08] MEDS: PRENATAL MULTIVITAMIN W/IRON 1 EACH PO (16:23)
[2024-11-08] MEDS: IBUPROFEN 400 MG TABLET 800 MG PO ×2 (16:24→22:34)
[2024-11-08 20:40] VITALS: BP 145/83; PULSE 83; RESP 18; TEMP 36.8; O2SAT 97
[2024-11-09] MEDS: ACETAMINOPHEN 500MG TAB 1000 MG PO ×2 (03:42→08:14)
[2024-11-09 03:43] VITALS: BP 113/76; PULSE 77; RESP 18; TEMP 36.5; O2SAT 98
[2024-11-09] MEDS: IBUPROFEN 400 MG TABLET 800 MG PO (08:13)
[2024-11-09] MEDS: FAMOTIDINE 20MG TABLET 20 MG PO (08:14)
--- NOTE | 2024-11-09 08:41 | EXP.DC.SUM ---
General Admission date:: 11/07/24 Discharge date: 11/09/24 HPI HPI HPI: She is a 34-year-old 6 para 2 aborta 3 who is 39 weeks gestational age. She has had a previous section and is admitted for repeat lower segment transverse section at term. She also expresses desire for sterilization. The risks and benefits of surgery as well as the irreversibility of bilateral salpingectomy were discussed with the patient prior to Hospital Course Hospital Course Hospital Course: On November 07, 2024 she underwent a repeat lower segment transverse section. She delivered a liveborn male child at 7:52 AM. The baby had Apgars of 8 at 1 minute and 9 at 5 minutes. He weighed 7 pounds 3 ounces and was 19 and core inches long. She underwent a bilateral salpingectomy at the time of her section. She has done well postoperatively and has remained afebrile throughout her hospitalization. Her pain has been well-controlled with a tap block as well as Tylenol and ibuprofen. She takes an occasional Percocet. She will be discharged home today to follow-up with me in approximately 2 weeks time. She will continue with her vitamins and iron. She will continue with breast-feeding. She will be given a prescription for Percocet 5/325 number 8 tablets. She was given the usual instructions with respect to limiting her activity, driving and sexual activity. She was given instructions with respect to wound care. Her condition on discharge is stable and improved. Exam Data for Last 24 hours Vital signs and Labs for Last 24 Hours: Temp Pulse Resp BP Pulse Ox O2 Del Method 97.7 F 77 18 113/76 98 Room Air 11/09/24 03:43 11/09/24 03:43 11/09/24 03:43 11/09/24 03:43 11/09/24 03:43 11/09/24 03:43 I & O for Last 24 hours: Intake & Output 11/06/24 11/07/24 11/08/24 11/09/24 11:59 11:59 11:59 11:59 Intake Total 600 / 600 0 / 0 Output Total 1700 / 1700 Balance 600 / 600 -1700 / -1700 Weight 135 lb Microbiology Reports for the Last 24 Hours: Microbiology 11/07/24 05:25 Urine,Clean Catch Urine Culture - Final No growth. Constitutional Constitutional: no acute distress *Routine HEENT Exam Head: Present normocephalic *Routine Respiratory Exam Respiratory: Present normal respiratory effort; Absent accessory muscle use *Routine Abdominal Exam Abdominal: Present soft; Absent tenderness, distended or rebound Comments: Her incision is clean and dry. DS: Diagnosis Discharge Diagnosis (1) Advanced maternal age (AMA) in : Status: Acute (2) Hx of section: Status: Acute Code(s): Z98.891 - History of uterine scar from previous surgery (3) Delivery by section of full-term infant: Status: Acute Code(s): O82 - Encounter for delivery without indication (4) Sterilization: Status: Acute Code(s): Z30.2 - Encounter for sterilization Meds Home Medications and Allergies Home Medications ?Medication ?Instructions ?Recorded ?Confirmed ?Type vits no.126-ferrous fum 1 tab PO DAILY 04/27/24 11/07/24 History 28 mg iron-folic acid 800 mcg tablet (Classic ) famotidine 20 mg tablet (Pepcid) 20 mg PO DAILY #30 tabs 06/20/24 11/07/24 Rx ferrous sulfate 325 mg (65 mg 325 mg PO DAILY #30 tabs 06/20/24 11/07/24 Rx iron) tablet oxycodone-acetaminophen 5 mg-325 1 tab PO Q6H PRN pain #8 tabs 11/09/24 Rx mg tablet New Prescriptions to Start Prescriptions: oxycodone-acetaminophen Maxwell Lin Allergies Allergy/AdvReac Type Severity Reaction Status Date / Time No Known Allergies Allergy Verified 11/01/24 14:53 Discharge Plan Disposition Patient Disposition: Home, Self-Care Discharge Order Discharge Orders: Discharge Order (Routine); Ordered 11/09/24 Ordered By: Maxwell Lin Follow up Plan Prescriptions/Medication Reconciliation: New oxycodone-acetaminophen 5-325 mg tablet 1 tab PO Q6H PRN (Reason: pain) Qty: 8 0RF Continued famotidine [Pepcid] 20 mg tablet 20 mg PO DAILY Qty: 30 11RF ferrous sulfate 325 mg (65 mg iron) tablet 325 mg PO DAILY Qty: 30 11RF Classic 28 mg iron- 800 mcg tablet 1 tab PO DAILY Problem Reconciliation Problems Reviewed?: Yes Patient Discharge Instructions ACTIVITY: No heavy lifting DIET: continue same diet Patient Instructions: Depression, Hemorrhage, DI for , DI for Pre-eclampsia, [facility] Post Discharge Instructions Print Language: [place] Providers Primary Care Provider: Ninfa Ventura Admit Provider: Maxwell Lin Attending Provider: Maxwell Lin
[2024-11-09] MEDS: OXYCODONE 5MG IMMEDIATE RELEASE TABLET 10 MG PO (10:48)
== END 2024-11-09 11:25 | disposition home or self-care (01) | DRG 785 ==
PROVIDERS: Admitting Provider Nurse Practitioner Obstetrics & Gynecology; PCP Family Medicine; Visit Provider Nurse Practitioner Obstetrics & Gynecology
PROC: 0UT70ZZ Resection of Bilateral Fallopian Tubes, Open Approach (ICD-10-PCS; CPT 59514; principal; 2024-11-07 07:30)
DX: O34.211 Maternal care for low transverse scar from previous cesarean delivery (principal); N85.8 Other specified noninflammatory disorders of uterus; Z3A.39 39 weeks gestation of pregnancy; Z37.0 Single live birth; Z30.2 Encounter for sterilization
CPT/HCPCS: 36415; 59025; 80048; 80307; 81001; 85025; 86850; 87086; 94761; G0283; J0666; J1100; J1885; J2405; J3010; J7120

== ENCOUNTER 2025-10-03 14:56 | Outpatient (CLI) | payer OTHER, SELFPAY ==
--- NOTE | 2025-10-03 15:00 | US_ITS ---
PROCEDURE: US TRANSVAGINAL CLINICAL INDICATION: Heavy menses COMPARISON: No exams were available for comparison FINDINGS: Transvaginal sonographic images of the pelvis were obtained. UTERUS: 7.0cm x 5cmx 3.7 cm anteverted with a combined endometrial thickness of 5.7 mm. There is a significant anterior defect where the scar is located. There is fluid within the endometrial cavity. LEFT OVARY: 2.4cmx1.5cmx1.3cm with a volume of 2.4ml. There are several small peripheral follicles. RIGHT OVARY: 3.2cmx 2.2cmx2.1cm with a volume of 8ml. There is a dominant follicle measuring 1.7 cm x 1.9 cm x 1.4 cm. There are several other small peripheral follicles. Both ovaries are seen and appear normal. Doppler flow to both ovaries are seen. There is no fluid in the cul-de-sac. IMPRESSION: 1. Anteverted uterus normal in size and shape. The endometrium measures 5.7 mm. 2. There is fluid within the endometrial cavity that extends to the upper cervix. There is an anterior wall defect at the scar. This defect is also fluid-filled. 3. Both ovaries are seen and appear normal. The left ovary has a number of small peripheral follicles. The right ovary has a dominant follicle measuring 1.9 cm. 4. No fluid in the cul-de-sac. Dictated by: Maxwell Lin MD 10/03/2025 16:37 Maxwell Lin MD in [place] 10/03/2025 16:37
== END 2025-10-03 23:59 | disposition home or self-care (01) ==
LOC: RAD 14:57
PROVIDERS: PCP Family Medicine; Visit Provider Nurse Practitioner Obstetrics & Gynecology
DX: N85.4 Malposition of uterus (principal); N83.02 Follicular cyst of left ovary; N83.01 Follicular cyst of right ovary; N85.8 Other specified noninflammatory disorders of uterus; N92.0 Excessive and frequent menstruation with regular cycle; R93.89 Abnormal findings on diagnostic imaging of other specified body structures
CPT/HCPCS: 76830